=== PATIENT | male | born 1945 | race Caucasian/White ===

== ENCOUNTER → 2020-01-15 15:53 | Outpatient (REF) | payer OTHER, SELFPAY | LOC: ANHLAB 15:53 | PROVIDERS: PCP Internal Medicine; Visit Provider Nurse Practitioner | DX: L85.8 Other specified epidermal thickening (principal) | CPT/HCPCS: 88305 ==

== ENCOUNTER → 2021-04-16 11:48 | Outpatient (CLI) | payer OTHER, SELFPAY ==
--- NOTE | ~2021-04-16 | XR_ITS ---
EXAMINATION: XR shoulder RT min 2V DATE: 04/16/2021 12:14 INDICATION: Right shoulder pain. TECHNIQUE: 4 views of right shoulder were obtained. COMPARISON: None. FINDINGS: Bone alignment is normal. No fracture. There is mild osteoarthritis of glenohumeral joint a nd acromioclavicular joint. IMPRESSION: 1. Mild polyarticular osteoarthritis. Reviewed, dictated and finalized at location B. SIZER
--- NOTE | ~2021-04-16 | XR_ITS ---
EXAMINATION: XR shoulder LT min 2V DATE: 04/16/2021 12:14 INDICATION: Left shoulder pain TECHNIQUE: AP internally and externally rotated, AP oblique externally rotated and axillary views of the left shoulder were obtained. COMPARISON: None FINDINGS: Normal alignment. No fracture. Glenohumeral joint is normal. Mild acromioclavicular osteoarthritis. Small heterotopic ossicle in the posterolateral upper arm in the region of the distal deltoid. Soft t issues are otherwise unremarkable. Visualized portions of the left lung are clear. IMPRESSION: Mild acromioclavicular osteoarthritis. Reviewed, dictated and finalized at location A. 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
== END ==
PROVIDERS: PCP Internal Medicine; Visit Provider Internal Medicine
DX: M25.512 Pain in left shoulder (principal); M25.511 Pain in right shoulder; M19.012 Primary osteoarthritis, left shoulder; M19.011 Primary osteoarthritis, right shoulder
CPT/HCPCS: 73030

== ENCOUNTER → 2022-03-10 09:33 | Outpatient (CLI) | payer OTHER, SELFPAY ==
--- NOTE | ~2022-03-10 | CT_ITS ---
EXAMINATION: CT lung screening DATE: 03/10/2022 09:47 INDICATION: Smoking history. Personal history of tobacco dependence. TECHNIQUE: Computed tomography (CT) of the chest was performed without intravenous contrast. The dose -length product was 91.91 mGy-cm. Automated exposure control and iterative reconstruction technique w ere employed. Axial COMPARISON: CT dated 09/07/2016 FINDINGS: There is atherosclerosis of the aorta and coronary arteries. Heart size mildly enlarged. No significant pleural or pericardial effusion. There is emphysema. No pneumothorax. There is dependent atelectasis. There are 3 mm right upper lobe nodules, best seen on coronal image 54. No endobronchia l lesions. Mild thoracic spondylosis. No focal lytic or blastic lesions. IMPRESSION: 1. Lung-RADS category 2: Benign appearance or behavior. Continue annual screening with noncontrast lo w-dose chest CT in 12 months. Reviewed, dictated and finalized at location A. PITTER IMPRESSION: 1. Lung-RADS category 2: Benign appearance or behavior. Continue annual screeni ng with noncontrast low-dose chest CT in 12 months.
== END ==
PROVIDERS: PCP Family Medicine; Visit Provider Family Medicine
DX: Z12.2 Encounter for screening for malignant neoplasm of respiratory organs (principal); Z87.891 Personal history of nicotine dependence
CPT/HCPCS: 71271

== ENCOUNTER 2022-09-23 07:54 | Outpatient (CLI) | payer OTHER, SELFPAY ==
[2022-09-23 17:38] LABS: Basophils Percent Auto 0.8 % (0.2-1.2); Eosinophils Absolute Auto 0.2 K/mm3 (0-0.3); Hematocrit 38.1 % (42.0-52.0); Hemoglobin 13.2 g/dL (14.0-18.0); Immature Granulocyte Absolute 0.02 K/mm3 (0.00-0.031); Immature Granulocyte Percent A 0.4 % (0-0.5); Lymphocytes Absolute Auto 0.85 K/mm3 (0.9-3.2); Lymphocytes Percent Auto 17.9 % (18.3-44.2); Mean Corpuscular HGB Conc 34.6 g/dl (32-36); Mean Corpuscular Hemoglobin 33.1 pg (26-34); Mean Corpuscular Volume 95.5 fl (80-100); Mean Platelet Volume 11.9 fl (7.4-10.4); Monocytes Absolute Auto 0.6 K/mm3 (0.1-0.6); Monocytes Percent Auto 12.2 % (2.6-8.5); Neutrophils Absolute Auto 3.1 K/mm3 (1.3-6.7); Neutrophils Percent Auto 64.7 % (45.5-73.1); Platelet Count Result 156 k/mm3 (150-375); Red Blood Count 3.99 M/mm3 (4.6-6.20); Red Cell Distribution Width 13.6 % (11.5-14.5); White Blood Count 4.8 K/mm3 (4.5-10.0)
[2022-09-23 20:49] LABS: Alanine Aminotransferase 33 U/L (6-50); Albumin Level 4.3 g/dL (3.5-5.1); Alkaline Phosphatase 45 U/L (38-126); Anion Gap 9 mmol/L (8-16); Aspartate Amino Transferase 34 U/L (17-59); Bilirubin,Total 0.6 mg/dL (0.2-1.3); Blood Urea Nitrogen 20 mg/dL (9-20); Calcium 8.9 mg/dL (8.4-10.2); Carbon Dioxide 26 mmol/L (22-30); Chloride 99 mmol/L (98-107); Cholesterol 152 mg/dL (0-200); Estimated Glomerular Filt Rate > 60; Glucose 96 mg/dL (65-110); HDL Direct 37 mg/dL; Sodium 134 mmol/L (137-145); Triglycerides 88 mg/dL (<150)
[2022-09-23 22:03] LABS: LDL Cholesterol Direct 98 mg/dL
== END 2022-09-23 07:55 | disposition home or self-care (01) ==
LOC: ANHGOSHLAB 07:56
PROVIDERS: PCP Family Medicine; Visit Provider Family Medicine
DX: R53.83 Other fatigue (principal); E78.5 Hyperlipidemia, unspecified; I10 Essential (primary) hypertension
CPT/HCPCS: 36415; 80053; 80061; 85025

== ENCOUNTER 2022-10-28 07:24 | Outpatient (CLI) | payer OTHER, SELFPAY ==
--- NOTE | ~2022-10-28 | NM_ITS ---
EXAMINATION: NM siomara stress w perfusion DATE: 10/28/2022 11:25 INDICATION: Dyspnea TECHNIQUE: Rest images were obtained following intravenous administration of 10.5 mCi Tc99m tetrofosm in (Myoview). The patient was infused intravenously with Lexiscan (Regadenoson). Then, 32.5 mCi Tc99m tetrofosmin (Myoview) was administered intravenously, and stress images were obtained in both the [place] and prone position. Data was reconstructed into short axis and horizontal and vertical long axis SPECT images. Gated SPECT images were also obtained. COMPARISON: None. FINDINGS: Mild to moderate severity perfusion defect in the left anterior descending coronary artery vascular distribution involving the apex, anteroapical, apical septal and mid anteroseptal segments. This primarily nonreversible infarct with partial reversibility consistent with ischemia at the anter oapical segment. There is an additional moderate severity perfusion defect involving portions of the right coronary artery and circumflex coronary artery vascular distributions portions of which are non reversible and portion which are partially reversible consistent with combination of infarct and isch emia. This involves the apical, mid and basilar segments of the inferior wall, the apical lateral seg ment and the mid and basilar inferolateral segments. The majority of the reversible ischemia is prese nt in the circumflex and right coronary artery vascular distributions. Borderline left ventricular en largement with calculated end-diastolic volume of 186 mL. Mild global hypokinesis with more focal dec reased wall thickening and wall motion along the inferolateral wall. Moderately decreased left ventri cular ejection fraction which measures 35%. IMPRESSION: 1. Large region of mild to moderate decreased perfusion involving portions of all 3 coronary artery v ascular distributions, portions of which are partially reversible consistent with ischemia superimpos ed over infarct. 2. Borderline left ventricular enlargement with carcinoid end-diastolic volume of 186 mm and moderate ly decreased left ventricular ejection fraction measuring 35%. Reviewed, dictated and finalized at location A. IMPRESSION: 1. Large region of mild to moderate decreased perfusion involving portions of a ll 3 coronary artery vascular distributions, portions of which are partially re versible consistent with ischemia superimposed over infarct. 2. Borderline left ventricular enlargement with carcinoid end-diastolic volume of 186 mm and moderately decreased left ventricular ejection fraction measuring 35%.
--- NOTE | 2022-10-28 07:34 | ECG_ITS ---
Measurements Intervals [place] Rate: 61 P: 41 ID: [id number] QRS: -39 QRSD: 176 T: 144 QT: 478 QTc: 482 Interpretive Statements SINUS RHYTHM WITH SINUS ARRHYTHMIA LEFT AXIS DEVIATION LEFT BUNDLE BRANCH BLOCK ABNORMAL ECG NO PREVIOUS ECG AVAILABLE FOR COMPARISON Electronically Signed On 10-28-2022 8:56:10 CDT by Miguel Angel Joe D.O.
--- NOTE | 2022-10-28 07:34 | ECHO_ITS ---
Patient Info Name: Henry Bearden Age: 77 years : 1945 Gender: Male Ht: 69 in Wt: 190 lbs BSA: 2.07 m2 HR: 72 bpm BP: 136 / 82 mmHg Heart Rhythm: Sinus Rhythm Technical Quality: Fair Exam Date: 10/28/2022 7:41 AM Exam Location: [facility] Pulmonary Patient Status: Outpatient Admit Date: 10/28/2022 Staff Ordering Physician: Darryl Moran DO Insurance Manager: Nevin Flores RDCS Attending Provider: Darryl Moran DO Referring Physician: Luisa ANAND; Exam Type: CA echo doppler color flow Study Info Indications R06.09 - Other forms of dyspnea Complete two-dimensional, color flow and Doppler transthoracic echocardiogram is performed. Strain analysis performed. Summary 1. Complete two-dimensional, color flow and Doppler transthoracic echocardiogram is performed. 2. Left ventricular chamber dimension is mildly enlarged. 3. Left ventricular systolic function is moderately reduced, estimated at 35-40%. 4. Left ventricular septal wall motion is abnormal with septal motion related to bundle branch block. 5. The left ventricular diastolic function is grade I diastolic dysfunction. 6. E/e' 20 is elevated. 7. Global longitudinal strain is abnormal at -9.9%. 8. Left atrial chamber dimension is mildly enlarged. 9. The mitral valve has mildly calcified annulus. 10. There is mild to moderate mitral valve regurgitation. 11. There is trace tricuspid valve regurgitation. 12. No pulmonary hypertension, estimated pulmonary arterial systolic pressure is 21 mmHg. Left Ventricle E/e' 20 is elevated. Global longitudinal strain is abnormal at -9.9%. Left ventricular chamber dimension is mildly enlarged. Left ventricular systolic function is moderately reduced, estimated at 35-40%. Left ventricular septal wall motion is abnormal with septal motion related to bundle branch block. The left ventricular diastolic function is grade I diastolic dysfunction. Right Ventricle Right ventricular systolic function is normal and with normal TAPSE 2.0 cm. Right ventricular chamber dimension is normal. Left Atria Left atrial chamber dimension is mildly enlarged. Right Atria Right atrial chamber dimension is normal. Aortic Valve The aortic valve is trileaflet. There is no aortic valve stenosis. There is no aortic valve regurgitation. Pulmonic Valve There is no pulmonic regurgitation. Mitral Valve The mitral valve has mildly calcified annulus. There is no mitral valve stenosis. There is mild to moderate mitral valve regurgitation. Tricuspid Valve There is trace tricuspid valve regurgitation. No pulmonary hypertension, estimated pulmonary arterial systolic pressure is 21 mmHg. Pericardium/Pleural There is no pericardial effusion. Inferior Vena Cava Normal inferior vena cava with >50% collapse upon inspiration consistent with normal right atrial pressure, 5 mmHg. Aorta The aortic root size at the sinus of Valsalva is normal. Left Ventricular Outflow Tract Name Value Normal LVOT 2D LVOT Diameter 2.0 cm LVOT Doppler LVOT Peak Gradient 3 mmHg LVOT Mean Gradient 1 mmHg LVOT VTI 16 cm LVOT VTI/AV VTI Ratio
--- NOTE | 2022-10-28 07:35 | EST_ITS ---
Patient Info Name: Henry Bearden Age: 77 years : 1945 Gender: Male Ht: 69 in Wt: 190 lbs BSA: 2.07 m2 HR: 59 bpm BP: 152 / 75 mmHg Heart Rhythm: Left Bundle Branch Block Exam Date: 10/28/2022 10:09 AM Exam Location: [facility] Stress Patient Status: Outpatient Admit Date: 10/28/2022 Staff Ordering Physician: Darryl Moran DO Attending Provider: Darryl Moran DO Exercise Technologist: Shania Felton CT Exercise Physician: Miguel Angel Joe DO Exam Type: CA stress siomara w NM Study Info Indications R06.09 - Other forms of dyspnea A regadenoson stress test was performed. Summary 1. 1. Inconclusive lexiscan stress test for ischemic ST changes by ECG criteria due to baseline LBBB. 2. 2. Baseline hypertension. 3. 3. Nuclear scan to follow and will be reported separately. Please correlate with it. 4. 4. Patient informed of the above results. Protocol: Lexiscan Stress ECG Details Stage: REST Duration (min): 9 min : 57 sec HR (bpm): 72 SBP (mmHg): 152 DBP (mmHg): 75 Stage: REST Duration (min): 12 min : 47 sec HR (bpm): 64 SBP (mmHg): 152 DBP (mmHg): 75 Stage: STAGE 1 Duration (min): 1 min : 0 sec HR (bpm): 73 SBP (mmHg): 144 DBP (mmHg): 81 Stage: RECOVERY Duration (min): 1 min : 0 sec HR (bpm): 87 SBP (mmHg): 144 DBP (mmHg): 81 Stage: RECOVERY Duration (min): 2 min : 0 sec HR (bpm): 87 SBP (mmHg): 144 DBP (mmHg): 81 Stage: RECOVERY Duration (min): 2 min : 55 sec HR (bpm): 82 SBP (mmHg): 147 DBP (mmHg): 84 Rest HR: 64 bpm Peak HR: 89 bpm Rest Sys BP: 152 mmHg Peak Sys BP: 147 mmHg Max Pred HR: 145 bpm % Max Pred HR: 61 % Target HR: 123 bpm Max RPP: 13,083 bpm*mmHg Termination Reason: Completed protocol Cardiac Symptoms: Shortness of breath Total Time: 1 min : 0 sec Rest Quach BP: 75 mmHg Peak Quach BP: 84 mmHg Total Dose: 0.4 mg Resting ECG Sinus rhythm, LBBB. Stress ECG No ST changes. Arrhythmias None. Report Signatures
== END 2022-10-28 07:25 | disposition home or self-care (01) ==
PROVIDERS: PCP Family Medicine; Visit Provider Family Medicine
DX: R53.83 Other fatigue (principal); R06.09 Other forms of dyspnea; I44.7 Left bundle-branch block, unspecified; I10 Essential (primary) hypertension; R94.31 Abnormal electrocardiogram [ECG] [EKG]; I34.0 Nonrheumatic mitral (valve) insufficiency; R93.1 Abnormal findings on diagnostic imaging of heart and coronary circulation
CPT/HCPCS: 78452; 93005; 93017; 93306; A9502; J2785

== ENCOUNTER 2023-01-15 04:05 | Day surgery (SDC) | payer OTHER, SELFPAY ==
[2023-01-14 15:18] VITALS: BMI 28.5
[2023-01-15] VITALS (17 sets, daily range): BP systolic 127–150; BP diastolic 50–94; PULSE 61–75; RESP 12–20; TEMP 35.9; O2SAT 93–99; BMI 28.0
[2023-01-15 07:43] LABS: Basophils Percent Auto 0.8 % (0.2-1.2); Eosinophils Absolute Auto 0.2 K/mm3 (0-0.3); Eosinophils Percent Auto 3.4 % (0-4.4); Hematocrit 39.5 % (42.0-52.0); Hemoglobin 14.1 g/dL (14.0-18.0); Immature Granulocyte Absolute 0.02 K/mm3 (0.00-0.031); Immature Granulocyte Percent A 0.4 % (0-0.5); Lymphocytes Absolute Auto 1.08 K/mm3 (0.9-3.2); Lymphocytes Percent Auto 20.5 % (18.3-44.2); Mean Corpuscular HGB Conc 35.7 g/dl (32-36); Mean Corpuscular Hemoglobin 33.5 pg (26-34); Mean Corpuscular Volume 93.8 fl (80-100); Mean Platelet Volume 10.1 fl (7.4-10.4); Monocytes Absolute Auto 0.6 K/mm3 (0.1-0.6); Monocytes Percent Auto 10.6 % (2.6-8.5); Neutrophils Absolute Auto 3.4 K/mm3 (1.3-6.7); Neutrophils Percent Auto 64.3 % (45.5-73.1); Platelet Count Result 208 k/mm3 (150-375); Red Blood Count 4.21 M/mm3 (4.6-6.20); Red Cell Distribution Width 13.1 % (11.5-14.5); White Blood Count 5.3 K/mm3 (4.5-10.0)
[2023-01-15 07:51] LABS: Anion Gap 10 mmol/L (8-16); Blood Urea Nitrogen 14 mg/dL (9-20); Calcium 9.1 mg/dL (8.4-10.2); Carbon Dioxide 22 mmol/L (22-30); Chloride 101 mmol/L (98-107); Estimated CRCL calculation 56 ml/min; Estimated Glomerular Filt Rate > 60; Glucose 115 mg/dL (65-110); Potassium 3.8 mmol/L (3.4-5.0); Sodium 133 mmol/L (137-145)
[2023-01-15 08:03] LABS: Prothrombin Time 13.7 Seconds (11.1-14.7)
--- NOTE | 2023-01-15 10:28 | WPDMODSED ---
Moderate Sedation Note-Pt Data Patient Data Diagnosis: left ventricular systolic dysfunction left bundle branch block hypertension Present Complaint: generalized fatigue/lack of energy Procedure to be performed/Plan: left heart catheterization Allergies Allergy/AdvReac Type Severity Reaction Status Date / Time Penicillins Allergy Mild rash Verified 01/14/23 15:16 Home Medications Medication Instructions Recorded Confirmed Type hydrochlorothiazide 12.5 mg tablet 12.5 mg PO DAILY #90 tabs 08/21/21 01/14/23 Rx lisinopril 10 mg tablet 10 mg PO DAILY #90 tabs 01/26/22 01/15/23 Rx lovastatin 40 mg tablet 40 mg PO QPM #90 tabs 09/29/22 01/15/23 Rx Current Medications: Active Medications Sodium Chloride (Normal Saline Iv) 500 mls @ 100 mls/hr IV CONT .Q5H GORGE Sedation/Anesthesia: No previous sedation/anesthesia problems (including family history). [facility] Family History Family History Sibling Family history of migraine headaches Family history of type 2 diabetes mellitus Mother Family history of malignant neoplasm Patient's mother is Father Patient's father is , Onset Age: 73 Social History Social History Smoking packs per day: 2 Smoking cigarettes per day: 40.0 Years smoked: 50 Smoking pack-years: 100.00 Smoking status: Former smoker Tobacco type: cigarettes Second hand tobacco smoke exposure: No Smoking end date: 01/13/17 Alcohol intake: current Drinks per week: 12 Alcohol use details: beer Substance use: never Substance use type: does not use Last use: 2016 Lack of Transportation: No Lack of Food: Never True Current Housing: I Have Housing Concerned About Future Housing: No Difficulty Paying Gas/Electric Bills: No Difficulty Paying for Meds: No Currently Unemployed: No Education: High School Diploma/GED Difficulty w/ Childcare or Family Care: No Living arrangements: alone Spiritual care concerns: No Mod Sed Physical Exam Physical Exam Pre Procedural Exam: Normal: Appearance, Neck, Throat, Airway, Lungs, Heart Size, Heart Rate, Heart Rhythm, Neuro Exam and Extremities Hours since solid foods: 12 Hours since liquid intake: 12 Mallampati Classification: class II Internal Medicine - PN: Obj Da Vital Signs Vital Signs: Vital Signs - 24 hr 01/15/23 07:34 Temperature 35.9 C L Pulse Rate 67 Respiratory Rate 14 Blood Pressure 146/93 H Pulse Oximetry 96 Oxygen Delivery Room Air Meds/Results Medications: Active Medications Generic Name Dose Route Start Last Admin Trade Name Patricioq PRN Reason Stop Dose Admin Sodium Chloride 500 mls @ 100 mls/hr 01/15/23 07:30 Normal Saline Iv IV CONT .Q5H GORGE Labs 01/15/23 07:37 01/15/23 07:37 Labs: Laboratory Results - last 24 hr 01/15/23 07:37 WBC 5.3 RBC 4.21 L Hgb 14.1 Hct 39.5 L MCV 93.8 MCH 33.5 MCHC 35.7 RDW 13.1 Plt Count 208 MPV 10.1 Immature Gran % (Auto) 0.4 Neut % (Auto) 64.3 Lymph % (Auto) 20.5 Ida % (Auto) 10.6 H Eos % (Auto) 3.4 Baso % (Auto) 0.8 Lymph # (Auto) 1.08 Ida # (Auto) 0.6 Eos # (Auto) 0.2 Baso # (Auto) 0.0 Abs Immat Gran (auto) 0.02 Absolute Neuts (auto) 3.4 Absolute Nucleated RBC 0.0 Nucleated RBC % 0.0 PT 13.7 INR 1.0 Sodium 133 L Potassium 3.8 Chloride 101 Carbon Dioxide 22 Anion Gap 10 BUN 14 D Creatinine 1.00 Estim Creat Clear Calc 56 Estimated GFR > 60 Glucose 115 H Calcium 9.1 ASA Classification/Sedation ASA Classification/Sedation ASA Class: II Emergent: No Risks: Risks, benefits and alternatives explained and patient/family accepted plan for sedation. Patient re-evaluated immediately prior to sedation.
--- NOTE | 2023-01-15 11:03 | WPDCARDPROC ---
Cardiac Cath Procedure Note Date of procedure:: 01/15/23 Performing physician:: Maynor Mcgregor MD Indication:: left bundle branch block left ventricular systolic dysfunction Brief clinical history:: this is a 77-year-old man found to have left bundle branch block and LV systolic dysfunction a recent nuclear stress testing that was done to evaluate symptoms of exertional fatigue and lack of energy. He is not having any chest pain per se. Because of these findings angiography has been recommended Procedure Procedure performed:: coronary angiogram left ventriculogram Sedation/Medication given:: fentanyl 50 mg Versed 2 mg case start 1031 case end time 11:01 a.m. sedation provided by Valencia Connor RN, trained observer Access site:: right femoral artery Estimated blood loss:: 25 cc Procedure note:: patient was brought to the cardiac catheterization lab in post absorptive state where the right femoral triangle was prepared and draped in the usual fashion. Anesthesia was provided with 1% lidocaine infiltrated locally. Using the modified Seldinger technique the right femoral artery was punctured and a 5 [place] vascular sheath was placed. After this left heart catheterization was carried out. I used a 5 [place] angled pigtail catheter to measure left-sided and inject LV g in the 30 degree [place] projection. Following this I used a standard 5 [place] FL4 catheter to engage inject the left coronary artery. The standard JR4 catheter would not successfully engage the right coronary artery. I injected this artery using a 5 [place] AL1 catheter. Cineangiograms were then reviewed and the case was terminated. An angiogram was performed to the femoral artery through the sheath after which I elected to have the sheath removed with direct manual compression. He tolerated the procedure well there were no apparent complications. 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 Findings:: Hemodynamics: Central aortic pressure was 135 over 64 left ventricle 135/6 end-diastolic 15 there was no gradient on pullback across the aortic valve. Left ventricle: The LV is moderately dilated there is moderate global systolic dysfunction identified with an ejection fraction of 30-35% by visual estimation. The left coronary artery is significantly calcified fluoroscopically prior to any injection. The right coronary is mild to moderately calcified. The left main coronary artery is nicely patent the left anterior descending is a moderate caliber artery which is heavily calcified proximally. Proximally there is mild stenosis in the LAD after the large diagonal branch arises the LAD itself has a discrete 80% stenosis. This is immediately after the origin of the major diagonal as described above. Distally the LAD has mild atherosclerosis there was good flow down to the apex. The circumflex is a moderate caliber artery which appears to be 100% occluded after the 1st OM branch takes its origin. Proximal circ in the 1st OM are free of significant lesions. The right coronary artery is large in caliber and dominant to the posterior circulation. The ostium of the right coronary artery has 95% stenosis. The 1st portion of the right coronary has 90% stenosis the 2nd portion has 50-60% stenosis. The RPDA and RPL branches are good size and are free of significant lesions. Conclusion:: 1. Right coronary dominant circulation with severe three-vessel coronary artery disease. 2. 80% stenosis in the LAD immediately after they major diagonal arises. Lad is moderate to severely calcified vessel 3. total occlusion of the circumflex after OM1 4. 95% ostial right coronary stenosis with high-grade stenosis in the 1st portion. Large dominant RCA with good distal targets 5. left ventricular enlargement with moderate global systolic dysfunction ejection fraction 30-35% Maynor Mcgregor MD FACC
== END 2023-01-15 16:58 | disposition home or self-care (01) ==
PROVIDERS: PCP Family Medicine; Visit Provider Specialist
PROC: 4A023N7 Measurement of Cardiac Sampling and Pressure, Left Heart, Percutaneous Approach (ICD-10-PCS; CPT 93452; principal; 2023-01-15 09:00)
DX: I25.10 Atherosclerotic heart disease of native coronary artery without angina pectoris (principal); R94.39 Abnormal result of other cardiovascular function study; I44.7 Left bundle-branch block, unspecified; I10 Essential (primary) hypertension; E78.5 Hyperlipidemia, unspecified; Z87.891 Personal history of nicotine dependence
CPT/HCPCS: 36415; 80048; 85025; 85610; 93458; C1887; C1894; J1644; J2250; J3010; J7040

== ENCOUNTER 2023-02-01 15:28 | Outpatient (CLI) | payer OTHER, SELFPAY ==
[2023-02-01 16:30] LABS: Basophils Percent Auto 0.6 % (0.2-1.2); Eosinophils Absolute Auto 0.1 K/mm3 (0-0.3); Eosinophils Percent Auto 2.7 % (0-4.4); Hematocrit 40.6 % (42.0-52.0); Hemoglobin 13.8 g/dL (14.0-18.0); Immature Granulocyte Absolute 0.01 K/mm3 (0.00-0.031); Immature Granulocyte Percent A 0.2 % (0-0.5); Lymphocytes Percent Auto 15.6 % (18.3-44.2); Mean Corpuscular Hemoglobin 32.6 pg (26-34); Mean Platelet Volume 11.1 fl (7.4-10.4); Monocytes Absolute Auto 0.5 K/mm3 (0.1-0.6); Monocytes Percent Auto 9.9 % (2.6-8.5); Neutrophils Absolute Auto 3.6 K/mm3 (1.3-6.7); Platelet Count Result 215 k/mm3 (150-375); Red Blood Count 4.23 M/mm3 (4.6-6.20); Red Cell Distribution Width 13.3 % (11.5-14.5); White Blood Count 5.1 K/mm3 (4.5-10.0)
== END 2023-02-01 15:29 | disposition home or self-care (01) ==
PROVIDERS: PCP Family Medicine
DX: I44.7 Left bundle-branch block, unspecified (principal)
CPT/HCPCS: 36415; 85025

== ENCOUNTER 2023-11-08 11:11 | Outpatient (CLI) | payer OTHER, SELFPAY ==
[2023-11-08 18:54] LABS: Alanine Aminotransferase 20 U/L (6-50); Albumin Level 4.3 g/dL (3.5-5.1); Alkaline Phosphatase 50 U/L (38-126); Anion Gap 11 mmol/L (4-12); Aspartate Amino Transferase 82 U/L (17-59); Bilirubin,Total 0.9 mg/dL (0.2-1.3); Blood Urea Nitrogen 17 mg/dL (9-20); Calcium 8.9 mg/dL (8.4-10.2); Carbon Dioxide 23 mmol/L (22-30); Chloride 99 mmol/L (98-107); Cholesterol 145 mg/dL (0-200); Estimated Glomerular Filt Rate > 60; Glucose 97 mg/dL (65-110); HDL Direct 44 mg/dL; Potassium 4.3 mmol/L (3.4-5.0); Sodium 133 mmol/L (137-145); Triglycerides 55 mg/dL (<150)
[2023-11-08 19:04] LABS: LDL Cholesterol Direct 79 mg/dL
== END 2023-11-08 11:12 | disposition home or self-care (01) ==
LOC: ANHGOSHLAB 11:12
PROVIDERS: PCP Family Medicine; Visit Provider Family Medicine
DX: Z13.220 Encounter for screening for lipoid disorders (principal); Z13.228 Encounter for screening for other metabolic disorders; E78.5 Hyperlipidemia, unspecified
CPT/HCPCS: 36415; 80053; 80061

== ENCOUNTER 2023-11-09 09:11 | Outpatient (CLI) | payer OTHER, SELFPAY ==
--- NOTE | ~2023-11-09 | US_ITS ---
EXAMINATION: US soft tissue abdomen DATE: 11/09/2023 09:23 INDICATION: Left lower abdominal nodule. TECHNIQUE: Multiple grayscale and Doppler ultrasound images of the abdomen were obtained. COMPARISON: None FINDINGS: In the left lower flank, there is a 2.6 x 0.9 x 2.1 cm hyperechoic subcutaneous mass. IMPRESSION: 1. 2.6 cm hyperechoic subcutaneous mass in left lower flank, most likely inflammation given the skin discoloration with the appearance of a bruise. Reviewed, dictated and finalized at location A. IMPRESSION: 1. 2.6 cm hyperechoic subcutaneous mass in left lower flank, most likely inflam mation given the skin discoloration with the appearance of a bruise.
== END 2023-11-09 09:12 ==
LOC: GOSHIMG 09:12
PROVIDERS: PCP Family Medicine; Visit Provider Family Medicine
DX: R19.04 Left lower quadrant abdominal swelling, mass and lump (principal)
CPT/HCPCS: 76705

== ENCOUNTER 2023-12-10 15:20 | Inpatient (IN) | payer OTHER, SELFPAY ==
--- NOTE | ~2023-12-10 | XR_ITS ---
EXAMINATION: XR chest 2V DATE: 12/10/2023 17:16 INDICATION: Weakness. TECHNIQUE: Frontal and lateral views of the chest were obtained. COMPARISON: None. FINDINGS: There is no pneumonia, pleural effusion, or pneumothorax. The heart size is normal. There i s a left chest wall pacer with leads in the right atrium and right ventricle. IMPRESSION: 1. No acute cardiopulmonary disease. Reviewed, dictated and finalized at location A.
[2023-12-10 16:01] VITALS: BP 97/80; PULSE 102; RESP 16; TEMP 36.7; O2SAT 95
--- NOTE | 2023-12-10 16:02 | ECG_ITS ---
Test Date: 2023-12-10 16:11:24 Measurements Intervals [place] Rate: 92 P: 64 CT: 168 QRS: -81 QRSD: 200 T: 89 QT: 418 QTc: 519 Interpretive Statements ELECTRONIC ATRIAL PACEMAKER WITH INHIBITION ELECTRONIC VENTRICULAR PACEMAKER BASELINE ARTIFACT- I, AVR NO FURTHER INTERPRETATION IS POSSIBLE ATYPICAL ECG No previous ECG available for comparison Electronically Signed On 12-10-2023 16:15:59 CDT by Miguel Angel Joe D.O.
--- NOTE | 2023-12-10 16:03 | ED_ITS ---
HPI - Weakness General Chief complaint: Weakness <Jennifer Majano PA-C - Last Filed: 12/11/23 14:43> Stated complaint: Generalized Weakness. Pt not eaten in 4 days <Jennifer Majano PA-C - Last Filed: 12/11/23 14:43> Time Seen by Provider: 12/10/23 16:03 <Jennifer Majano PA-C - Last Filed: 12/11/23 14:43> Focused HPI: This is a 78-year-old male that presents to the emergency department for generalized weakness. Reports this has been worsening over the last several months. His son brought him in today because he was concerned he has not eaten or drank much the last couple of days. Patient has no focal pain. Reports he just feels lousy. GENERAL: Well-appearing, well-nourished, and in no acute distress. HEAD: Normocephalic, atraumatic. CHEST: Clear to auscultation. ?No respiratory distress. HEART: Regular rate and rhythm.? NEURO: ?Alert and oriented x3. Patient screened in triage and initial orders placed.? ?Additional care and disposition to be based upon?diagnostic testing and treatment. <Jennifer Majano PA-C - Last Filed: 12/11/23 14:43> History of Present Illness HPI Narrative: I agree with the note and assessment performed by Jennifer Majano PA-C. <Patricia Hunter APRN - Last Filed: 12/11/23 03:15> MD Complaint: generalized weakness <Patricia Hunter APRN - Last Filed: 12/11/23 03:15> Related Data Home medications: Home Medications Medication Instructions Recorded Confirmed aspirin 81 mg tablet,delayed 81 mg PO DAILY 05/11/23 12/11/23 release (Adult Aspirin Regimen) ticagrelor 90 mg tablet 90 mg PO Q12H 05/11/23 12/11/23 carvedilol 3.125 mg tablet 3.125 mg PO BID 12/11/23 12/11/23 hydralazine 25 mg tablet 25 mg PO DAILY 12/11/23 12/11/23 sildenafil (pulm.hypertension) 20 20 mg PO TID PRN Sexual Activity 12/11/23 12/11/23 mg tablet <Jennifer Majano PA-C - Last Filed: 12/11/23 14:43> Allergies/Adverse reactions: Allergies Allergy/AdvReac Type Severity Reaction Status Date / Time Penicillins Allergy Mild rash Verified 12/11/23 04:28 <Jennifer Majano PA-C - Last Filed: 12/11/23 14:43> Review of Systems Review of Systems: All systems reviewed & are unremarkable except as noted in HPI and below <Patricia Hunter APRN - Last Filed: 12/11/23 03:15> [facility] Past Medical History Medical History: Medical History (Updated 12/11/23 @ 14:42 by Jennifer Majano PA-C) Benign essential hypertension Chronic heart failure with reduced ejection fraction (HFrEF, <= 40%) Coronary artery disease Hyperlipidemia Pacemaker <Jennifer Majano PA-C - Last Filed: 12/11/23 14:43> Family History Family History: Family History Sibling Family history of migraine headaches Family history of type 2 diabetes mellitus Mother Family history of malignant neoplasm Patient's mother is Father Patient's father is , Onset Age: 73 <Jennifer Majano PA-C - Last Filed: 12/11/23 14:43> Social History Social History: Social History Smoking packs per day: 2 Smoking cigarettes per day: 40.0 Years smoked: 50 Smoking pack-years: 100.00 Smoking status: Former smoker Tobacco type: cigarettes Second hand tobacco smoke exposure: No Smoking end date: 01/13/17 Alcohol intake: current Drinks per week: 12 Alcohol use details: beer Substance use: current Substance use type: does not use Last use: 2017 Do You Feel Safe in your Home?: Yes Lack of Transportation: No Lack of Food: Never True Current Housing: I Have Housing Concerned About Future Housing: No Difficulty Paying Gas/Electric Bills: No Difficulty Paying for Meds: No Currently Unemployed: No Education: Decline to Answer Difficulty w/ Childcare or Family Care: No Living arrangements: alone Spiritual care concerns: No <Jennifer Majano PA-C - Last Filed: 12/11/23 14:43> Exam Narrative: GENERAL: Ill-appearing but well-nourished, non-toxic, in no acute distress. HEAD: Normocephalic, atraumatic. NECK: Supple. No adenopathy, no masses. RESPIRATORY: Airway patent, respirations nonlabored. Clear to auscultation bilaterally, no rales, rhonchi, wheezing. CARDIOVASCULAR: Paced heart rate, rhythm without murmurs, rubs, or gallops. Mild bilateral lower extremity edema. Peripheral pulses 2+ and equal bilaterally. ABDOMINAL: Soft, nontender, nondistended, no hepatosplenomegaly. Normoactive BS. MUSCULOSKELETAL: Moves all extremities. Strength/ROM intact without gross deformities. SKIN: Warm, dry, normal color. No rashes. NEURO: A&O X3. Speech clear. Cranial nerves II-XII grossly intact. No ataxic movements. <Patricia Hunter APRN - Last Filed: 12/11/23 03:15> Course LINE UP MACHINE OPERATOR/PA Physician Supervision For this patient encounter, I reviewed the LINE UP MACHINE OPERATOR or PA documentation, treatment plan, and medical decision making and/or I had [id number] time with this patient. I performed all aspects of the MDM as documented. <Cleo Weston MD - Last Filed: 12/11/23 04:57> Vital Signs Vital signs: Vital Signs Temperature 98.1 F 12/10/23 16:01 Pulse Rate 102 H 12/10/23 16:01 Respiratory Rate 16 12/10/23 16:01 Blood Pressure 97/80 L 12/10/23 16:01 Pulse Oximetry 95 12/10/23 16:01 Oxygen Delivery Room Air 12/10/23 16:01 Temperature 97.6 F 12/11/23 11:43 Pulse Rate 80 12/11/23 14:00 Respiratory Rate 16 12/11/23 12:00 Blood Pressure 121/65 12/11/23 11:43 Pulse Oximetry 98 12/11/23 12:00 Oxygen Delivery Room Air 12/11/23 12:00 <Jennifer Majano PA-C - Last Filed: 12/11/23 14:43> Vital Signs Temperature 98.1 F 12/10/23 16:01 Pulse Rate 102 H 12/10/23 16:01 Respiratory Rate 16 12/10/23 16:01 Blood Pressure 97/80 L 12/10/23 16:01 Pulse Oximetry 95 12/10/23 16:01 Oxygen Delivery Room Air 12/10/23 16:01 Temperature 97.6 F 12/11/23 11:43 Pulse Rate 80 12/11/23 14:00 Respiratory Rate 16 12/11/23 12:00 Blood Pressure 121/65 12/11/23 11:43 Pulse Oximetry 98 12/11/23 12:00 Oxygen Delivery Room Air 12/11/23 12:00 <Patricia Hunter, CUSTOMER PROGRAM SPECIALIST - Last Filed: 12/11/23 03:15> Vital Signs Temperature 98.1 F 12/10/23 16:01 Pulse Rate 102 H 12/10/23 16:01 Respiratory Rate 16 12/10/23 16:01 Blood Pressure 97/80 L 12/10/23 16:01 Pulse Oximetry 95 12/10/23 16:01 Oxygen Delivery Room Air 12/10/23 16:01 Temperature 97.6 F 12/11/23 11:43 Pulse Rate 80 12/11/23 14:00 Respiratory Rate 16 12/11/23 12:00 Blood Pressure 121/65 12/11/23 11:43 Pulse Oximetry 98 12/11/23 12:00 Oxygen Delivery Room Air 12/11/23 12:00 <Cleo Weston MD - Last Filed: 12/11/23 04:57> MDM - Weakness MDM Narrative Medical decision making narrative: This is a 78-year-old male that presents to the emergency department for generalized weakness. Reports this has been worsening over the last several months. His son brought him in today because he was concerned he has not eaten or drank much the last couple of days. Patient has no focal pain. Reports he just feels lousy. Upon examination, pt appears to be lethargic but is alert & oriented x 4. He reports no other symptoms and denies pain. Pt's son reports pt was recently admitted to [facility] over night, but he is unsure as to why or what he was diagnosed with at that time. Pt reports he has not been sleeping well lately. Pt's initial troponin was elevated at 0.048. His PTT and INR were both elevated, but pt is on Brilinta at home. His CBC indicated a normal WBC, but pt does have bands so blood cultures were drawn. Pt's blood work also indicated pt was dehydrated so pt was given 1L of IV 0.9NS over a total of four hours. He tolerat ed the IV fluid well. Pt and his son in agreement with plan for admittance to hospital. Will contact hospitalist. Hospitalist in agreement with plan for pt to be admitted to the hospital. Will put in consult for cardiology, but waiting to consult until second troponin results. [employer] called back and does not have concerns that pt is having an NSTEMI. Will proceed with admission to hospital. Pt's urine sample came back with results showing that patient also has a UTI. Will prescribe antibiotics. <Patricia Hunter APRN - Last Filed: 12/11/23 03:15> Differential Diagnosis Differential diagnosis: Likely sepsis, dehydration and other (NSTEMI) <Patricia Hunter APRN - Last Filed: 12/11/23 03:15> Medical Records Attestation: I reviewed the patient's medical records. <Cleo Weston MD - Last Filed: 12/11/23 04:57> Lab Data Attestation: I reviewed the patient's lab results. <Patricia Hunter APRN - Last Filed: 12/11/23 03:15> Result diagrams: 12/10/23 16:40 12/11/23 01:46 <Jennifer Majano PA-C - Last Filed: 12/11/23 14:43> Labs: Lab Results 12/10/23 12/10/23 12/11/23 Range/Units 16:40 22:08 01:46 WBC 7.6 (4.5-10.0) K/mm3 RBC 3.97 L (4.6-6.20) M/mm3 Hgb 13.1 L (14.0-18.0) g/dL Hct 35.8 L (42.0-52.0) % MCV 90.2 (80-100) fl MCH 33.0 (26-34) pg MCHC 36.6 H (32-36) g/dl RDW 13.0 (11.5-14.5) % Plt Count 175 (150-375) k/mm3 MPV 10.4 (7.4-10.4) fl Immature Gran % (Auto) Not Reportable Neut % (Auto) Not Reportable Lymph % (Auto) Not Reportable Mclennan % (Auto) Not Reportable Eos % (Auto) Not Reportable Baso % (Auto) Not Reportable Lymph # (Auto) Not Reportable Mclennan # (Auto) Not Reportable Eos # (Auto) Not Reportable Baso # (Auto) Not Reportable Abs Immat Gran (auto) Not Reportable Absolute Neuts (auto) Not Reportable Absolute Nucleated RBC Not Reportable Total Counted 100 Neutrophils % (Manual) 86 H (46-73) % Band Neutrophils % 8 H (0-6) % Lymphocytes % (Manual) 2.0 L (18-44) % Monocytes % (Manual) 4 (3-9) % Nucleated RBC % Not Reportable Abs Neuts (Manual) 7.14 H (1.3-6.7) K/mm3 Abs Lymphs (Manual) 0.15 L (1.1-4.5) K/mm3 Abs Monocytes (Manual) 0.30 (0.1-0.90) K/mm3 Platelet Estimate Adequate (Adequate) Schistocytes None seen PT 15.3 H (11.1-14.7) Seconds INR 1.2 APTT 40.2 H (22.3-36.8) Seconds Sodium 127 L 126 L (137-145) mmol/L Potassium 4.4 3.6 (3.4-5.0) mmol/L Chloride 92 L 95 L (98-107) mmol/L Carbon Dioxide 23 20 L (22-30) mmol/L Anion Gap 12 11 (4-12) mmol/L BUN 41 H D 47 H (9-20) mg/dL Creatinine 1.20 1.30 (0.7-1.3) mg/dL Estim Creat Clear Calc 47 43 ml/min Estimated GFR 59 54 L (59 - ) Glucose 146 H 110 (65-110) mg/dL Calcium 8.9 8.2 L (8.4-10.2) mg/dL Magnesium 2.1 (1.6-2.3) mg/dL Total Bilirubin 2.0 H (0.2-1.3) mg/dL AST 113 H (17-59) U/L ALT 73 H (6-50) U/L Alkaline Phosphatase 87 (38-126) U/L Troponin I 0.048 H* 0.038 H* (0.000-0.034) ng/mL NT-Pro-B Natriuret Pep 77673 H (19.9-100) pg/mL Total Protein 9.0 H (6.3-8.2) g/dL Albumin 4.4 (3.5-5.1) g/dL Lipase 92 113 (23-300) U/L Urine Color (Yellow) Urine Appearance (Clear) Urine pH (5.0-9.0) Ur Specific [place] (1.001-1.035) Urine Protein (Negative) mg/dL Urine Glucose (UA) (Negative) mg/dL Urine Ketones (Negative) mg/dL Ur Blood (Man) (Negative) Urine Nitrate (Negative) Urine Bilirubin (Negative) Urine Urobilinogen (<2.0) mg/dL Add Ur Microanalysis Leukocyte Esterase Rfl (Negative) HAROLDO/UL Urine RBC (0-2) /hpf Urine WBC (0-3) /hpf Ur Squamous Epith Cells (Few) /hpf Urine Bacteria /hpf Urine Casts Hyaline Casts (None) /lpf Urine Mucus /lpf Influenza A (RT-PCR) Negative (Negative) Influenza B (RT-PCR) Negative (Negative) RSV (RT-PCR) Negative (Negative) SARS-CoV-2 RNA (RT-PCR) Negative (Negative) 12/11/23 Range/Units 01:48 WBC (4.5-10.0) K/mm3 RBC (4.6-6.20) M/mm3 Hgb (14.0-18.0) g/dL Hct (42.0-52.0) % MCV (80-100) fl MCH (26-34) pg MCHC (32-36) g/dl RDW (11.5-14.5) % Plt Count (150-375) k/mm3 MPV (7.4-10.4) fl Immature Gran % (Auto) Neut % (Auto) Lymph % (Auto) Mclennan % (Auto) Eos % (Auto) Baso % (Auto) Lymph # (Auto) Mclennan # (Auto) Eos # (Auto) Baso # (Auto) Abs Immat Gran (auto) Absolute Neuts (auto) Absolute Nucleated RBC Total Counted Neutrophils % (Manual) (46-73) % Band Neutrophils % (0-6) % Lymphocytes % (Manual) (18-44) % Monocytes % (Manual) (3-9) % Nucleated RBC % Abs Neuts (Manual) (1.3-6.7) K/mm3 Abs Lymphs (Manual) (1.1-4.5) K/mm3 Abs Monocytes (Manual) (0.1-0.90) K/mm3 Platelet Estimate (Adequate) Schistocytes PT (11.1-14.7) Seconds INR APTT (22.3-36.8) Seconds Sodium (137-145) mmol/L Potassium (3.4-5.0) mmol/L Chloride (98-107) mmol/L Carbon Dioxide (22-30) mmol/L Anion Gap (4-12) mmol/L BUN (9-20) mg/dL Creatinine (0.7-1.3) mg/dL Estim Creat Clear Calc ml/min Estimated GFR (59 - ) Glucose (65-110) mg/dL Calcium (8.4-10.2) mg/dL Magnesium (1.6-2.3) mg/dL Total Bilirubin (0.2-1.3) mg/dL AST (17-59) U/L ALT (6-50) U/L Alkaline Phosphatase (38-126) U/L Troponin I (0.000-0.034) ng/mL NT-Pro-B Natriuret Pep (19.9-100) pg/mL Total Protein (6.3-8.2) g/dL Albumin (3.5-5.1) g/dL Lipase (23-300) U/L Urine Color Dark yellow (Yellow) Urine Appearance Clear (Clear) Urine pH 5.5 (5.0-9.0) Ur Specific [place] 1.024 (1.001-1.035) Urine Protein 2+ H (Negative) mg/dL Urine Glucose (UA) Negative (Negative) mg/dL Urine Ketones Negative (Negative) mg/dL Ur Blood (Man) Negative (Negative) Urine Nitrate Positive H (Negative) Urine Bilirubin 1+ H (Negative) Urine Urobilinogen 1.0 (<2.0) mg/dL Add Ur Microanalysis Reviewed Leukocyte Esterase Rfl Trace H (Negative) HAROLDO/UL Urine RBC 0-2 (0-2) /hpf Urine WBC 0-5 (0-3) /hpf Ur Squamous Epith Cells None seen (Few) /hpf Urine Bacteria None seen /hpf Urine Casts 3-5 Hyaline Casts Present (None) /lpf Urine Mucus Present /lpf Influenza A (RT-PCR) (Negative) Influenza B (RT-PCR) (Negative) RSV (RT-PCR) (Negative) SARS-CoV-2 RNA (RT-PCR) (Negative) <Jennifer Majano PA-C - Last Filed: 12/11/23 14:43> Lab Results 12/10/23 12/10/23 12/11/23 Range/Units 16:40 22:08 01:46 WBC 7.6 (4.5-10.0) K/mm3 RBC 3.97 L (4.6-6.20) M/mm3 Hgb 13.1 L (14.0-18.0) g/dL Hct 35.8 L (42.0-52.0) % MCV 90.2 (80-100) fl MCH 33.0 (26-34) pg MCHC 36.6 H (32-36) g/dl RDW 13.0 (11.5-14.5) % Plt Count 175 (150-375) k/mm3 MPV 10.4 (7.4-10.4) fl Immature Gran % (Auto) Not Reportable Neut % (Auto) Not Reportable Lymph % (Auto) Not Reportable Mclennan % (Auto) Not Reportable Eos % (Auto) Not Reportable Baso % (Auto) Not Reportable Lymph # (Auto) Not Reportable Mclennan # (Auto) Not Reportable Eos # (Auto) Not Reportable Baso # (Auto) Not Reportable Abs Immat Gran (auto) Not Reportable Absolute Neuts (auto) Not Reportable Absolute Nucleated RBC Not Reportable Total Counted 100 Neutrophils % (Manual) 86 H (46-73) % Band Neutrophils % 8 H (0-6) % Lymphocytes % (Manual) 2.0 L (18-44) % Monocytes % (Manual) 4 (3-9) % Nucleated RBC % Not Reportable Abs Neuts (Manual) 7.14 H (1.3-6.7) K/mm3 Abs Lymphs (Manual) 0.15 L (1.1-4.5) K/mm3 Abs Monocytes (Manual) 0.30 (0.1-0.90) K/mm3 Platelet Estimate Adequate (Adequate) Schistocytes None seen PT 15.3 H (11.1-14.7) Seconds INR 1.2 APTT 40.2 H (22.3-36.8) Seconds Sodium 127 L 126 L (137-145) mmol/L Potassium 4.4 3.6 (3.4-5.0) mmol/L Chloride 92 L 95 L (98-107) mmol/L Carbon Dioxide 23 20 L (22-30) mmol/L Anion Gap 12 11 (4-12) mmol/L BUN 41 H D 47 H (9-20) mg/dL Creatinine 1.20 1.30 (0.7-1.3) mg/dL Estim Creat Clear Calc 47 43 ml/min Estimated GFR 59 54 L (59 - ) Glucose 146 H 110 (65-110) mg/dL Calcium 8.9 8.2 L (8.4-10.2) mg/dL Magnesium 2.1 (1.6-2.3) mg/dL Total Bilirubin 2.0 H (0.2-1.3) mg/dL AST 113 H (17-59) U/L ALT 73 H (6-50) U/L Alkaline Phosphatase 87 (38-126) U/L Troponin I 0.048 H* 0.038 H* (0.000-0.034) ng/mL NT-Pro-B Natriuret Pep 33595 H (19.9-100) pg/mL Total Protein 9.0 H (6.3-8.2) g/dL Albumin 4.4 (3.5-5.1) g/dL Lipase 92 113 (23-300) U/L Urine Color (Yellow) Urine Appearance (Clear) Urine pH (5.0-9.0) Ur Specific [place] (1.001-1.035) Urine Protein (Negative) mg/dL Urine Glucose (UA) (Negative) mg/dL Urine Ketones (Negative) mg/dL Ur Blood (Man) (Negative) Urine Nitrate (Negative) Urine Bilirubin (Negative) Urine Urobilinogen (<2.0) mg/dL Add Ur Microanalysis Leukocyte Esterase Rfl (Negative) HAROLDO/UL Urine RBC (0-2) /hpf Urine WBC (0-3) /hpf Ur Squamous Epith Cells (Few) /hpf Urine Bacteria /hpf Urine Casts Hyaline Casts (None) /lpf Urine Mucus /lpf Influenza A (RT-PCR) Negative (Negative) Influenza B (RT-PCR) Negative (Negative) RSV (RT-PCR) Negative (Negative) SARS-CoV-2 RNA (RT-PCR) Negative (Negative) 12/11/23 Range/Units 01:48 WBC (4.5-10.0) K/mm3 RBC (4.6-6.20) M/mm3 Hgb (14.0-18.0) g/dL Hct (42.0-52.0) % MCV (80-100) fl MCH (26-34) pg MCHC (32-36) g/dl RDW (11.5-14.5) % Plt Count (150-375) k/mm3 MPV (7.4-10.4) fl Immature Gran % (Auto) Neut % (Auto) Lymph % (Auto) Mclennan % (Auto) Eos % (Auto) Baso % (Auto) Lymph # (Auto) Mclennan # (Auto) Eos # (Auto) Baso # (Auto) Abs Immat Gran (auto) Absolute Neuts (auto) Absolute Nucleated RBC Total Counted Neutrophils % (Manual) (46-73) % Band Neutrophils % (0-6) % Lymphocytes % (Manual) (18-44) % Monocytes % (Manual) (3-9) % Nucleated RBC % Abs Neuts (Manual) (1.3-6.7) K/mm3 Abs Lymphs (Manual) (1.1-4.5) K/mm3 Abs Monocytes (Manual) (0.1-0.90) K/mm3 Platelet Estimate (Adequate) Schistocytes PT (11.1-14.7) Seconds INR APTT (22.3-36.8) Seconds Sodium (137-145) mmol/L Potassium (3.4-5.0) mmol/L Chloride (98-107) mmol/L Carbon Dioxide (22-30) mmol/L Anion Gap (4-12) mmol/L BUN (9-20) mg/dL Creatinine (0.7-1.3) mg/dL Estim Creat Clear Calc ml/min Estimated GFR (59 - ) Glucose (65-110) mg/dL Calcium (8.4-10.2) mg/dL Magnesium (1.6-2.3) mg/dL Total Bilirubin (0.2-1.3) mg/dL AST (17-59) U/L ALT (6-50) U/L Alkaline Phosphatase (38-126) U/L Troponin I (0.000-0.034) ng/mL NT-Pro-B Natriuret Pep (19.9-100) pg/mL Total Protein (6.3-8.2) g/dL Albumin (3.5-5.1) g/dL Lipase (23-300) U/L Urine Color Dark yellow (Yellow) Urine Appearance Clear (Clear) Urine pH 5.5 (5.0-9.0) Ur Specific [place] 1.024 (1.001-1.035) Urine Protein 2+ H (Negative) mg/dL Urine Glucose (UA) Negative (Negative) mg/dL Urine Ketones Negative (Negative) mg/dL Ur Blood (Man) Negative (Negative) Urine Nitrate Positive H (Negative) Urine Bilirubin 1+ H (Negative) Urine Urobilinogen 1.0 (<2.0) mg/dL Add Ur Microanalysis Reviewed Leukocyte Esterase Rfl Trace H (Negative) HAROLDO/UL Urine RBC 0-2 (0-2) /hpf Urine WBC 0-5 (0-3) /hpf Ur Squamous Epith Cells None seen (Few) /hpf Urine Bacteria None seen /hpf Urine Casts 3-5 Hyaline Casts Present (None) /lpf Urine Mucus Present /lpf Influenza A (RT-PCR) (Negative) Influenza B (RT-PCR) (Negative) RSV (RT-PCR) (Negative) SARS-CoV-2 RNA (RT-PCR) (Negative) <Patricia Hunter, CUSTOMER PROGRAM SPECIALIST - Last Filed: 12/11/23 03:15> Lab Results 12/10/23 12/10/23 12/11/23 Range/Units 16:40 22:08 01:46 WBC 7.6 (4.5-10.0) K/mm3 RBC 3.97 L (4.6-6.20) M/mm3 Hgb 13.1 L (14.0-18.0) g/dL Hct 35.8 L (42.0-52.0) % MCV 90.2 (80-100) fl MCH 33.0 (26-34) pg MCHC 36.6 H (32-36) g/dl RDW 13.0 (11.5-14.5) % Plt Count 175 (150-375) k/mm3 MPV 10.4 (7.4-10.4) fl Immature Gran % (Auto) Not Reportable Neut % (Auto) Not Reportable Lymph % (Auto) Not Reportable Mclennan % (Auto) Not Reportable Eos % (Auto) Not Reportable Baso % (Auto) Not Reportable Lymph # (Auto) Not Reportable Mclennan # (Auto) Not Reportable Eos # (Auto) Not Reportable Baso # (Auto) Not Reportable Abs Immat Gran (auto) Not Reportable Absolute Neuts (auto) Not Reportable Absolute Nucleated RBC Not Reportable Total Counted 100 Neutrophils % (Manual) 86 H (46-73) % Band Neutrophils % 8 H (0-6) % Lymphocytes % (Manual) 2.0 L (18-44) % Monocytes % (Manual) 4 (3-9) % Nucleated RBC % Not Reportable Abs Neuts (Manual) 7.14 H (1.3-6.7) K/mm3 Abs Lymphs (Manual) 0.15 L (1.1-4.5) K/mm3 Abs Monocytes (Manual) 0.30 (0.1-0.90) K/mm3 Platelet Estimate Adequate (Adequate) Schistocytes None seen PT 15.3 H (11.1-14.7) Seconds INR 1.2 APTT 40.2 H (22.3-36.8) Seconds Sodium 127 L 126 L (137-145) mmol/L Potassium 4.4 3.6 (3.4-5.0) mmol/L Chloride 92 L 95 L (98-107) mmol/L Carbon Dioxide 23 20 L (22-30) mmol/L Anion Gap 12 11 (4-12) mmol/L BUN 41 H D 47 H (9-20) mg/dL Creatinine 1.20 1.30 (0.7-1.3) mg/dL Estim Creat Clear Calc 47 43 ml/min Estimated GFR 59 54 L (59 - ) Glucose 146 H 110 (65-110) mg/dL Calcium 8.9 8.2 L (8.4-10.2) mg/dL Magnesium 2.1 (1.6-2.3) mg/dL Total Bilirubin 2.0 H (0.2-1.3) mg/dL AST 113 H (17-59) U/L ALT 73 H (6-50) U/L Alkaline Phosphatase 87 (38-126) U/L Troponin I 0.048 H* 0.038 H* (0.000-0.034) ng/mL NT-Pro-B Natriuret Pep 79738 H (19.9-100) pg/mL Total Protein 9.0 H (6.3-8.2) g/dL Albumin 4.4 (3.5-5.1) g/dL Lipase 92 113 (23-300) U/L Urine Color (Yellow) Urine Appearance (Clear) Urine pH (5.0-9.0) Ur Specific [place] (1.001-1.035) Urine Protein (Negative) mg/dL Urine Glucose (UA) (Negative) mg/dL Urine Ketones (Negative) mg/dL Ur Blood (Man) (Negative) Urine Nitrate (Negative) Urine Bilirubin (Negative) Urine Urobilinogen (<2.0) mg/dL Add Ur Microanalysis Leukocyte Esterase Rfl (Negative) HAROLDO/UL Urine RBC (0-2) /hpf Urine WBC (0-3) /hpf Ur Squamous Epith Cells (Few) /hpf Urine Bacteria /hpf Urine Casts Hyaline Casts (None) /lpf Urine Mucus /lpf Influenza A (RT-PCR) Negative (Negative) Influenza B (RT-PCR) Negative (Negative) RSV (RT-PCR) Negative (Negative) SARS-CoV-2 RNA (RT-PCR) Negative (Negative) 12/11/23 Range/Units 01:48 WBC (4.5-10.0) K/mm3 RBC (4.6-6.20) M/mm3 Hgb (14.0-18.0) g/dL Hct (42.0-52.0) % MCV (80-100) fl MCH (26-34) pg MCHC (32-36) g/dl RDW (11.5-14.5) % Plt Count (150-375) k/mm3 MPV (7.4-10.4) fl Immature Gran % (Auto) Neut % (Auto) Lymph % (Auto) Mclennan % (Auto) Eos % (Auto) Baso % (Auto) Lymph # (Auto) Mclennan # (Auto) Eos # (Auto) Baso # (Auto) Abs Immat Gran (auto) Absolute Neuts (auto) Absolute Nucleated RBC Total Counted Neutrophils % (Manual) (46-73) % Band Neutrophils % (0-6) % Lymphocytes % (Manual) (18-44) % Monocytes % (Manual) (3-9) % Nucleated RBC % Abs Neuts (Manual) (1.3-6.7) K/mm3 Abs Lymphs (Manual) (1.1-4.5) K/mm3 Abs Monocytes (Manual) (0.1-0.90) K/mm3 Platelet Estimate (Adequate) Schistocytes PT (11.1-14.7) Seconds INR APTT (22.3-36.8) Seconds Sodium (137-145) mmol/L Potassium (3.4-5.0) mmol/L Chloride (98-107) mmol/L Carbon Dioxide (22-30) mmol/L Anion Gap (4-12) mmol/L BUN (9-20) mg/dL Creatinine (0.7-1.3) mg/dL Estim Creat Clear Calc ml/min Estimated GFR (59 - ) Glucose (65-110) mg/dL Calcium (8.4-10.2) mg/dL Magnesium (1.6-2.3) mg/dL Total Bilirubin (0.2-1.3) mg/dL AST (17-59) U/L ALT (6-50) U/L Alkaline Phosphatase (38-126) U/L Troponin I (0.000-0.034) ng/mL NT-Pro-B Natriuret Pep (19.9-100) pg/mL Total Protein (6.3-8.2) g/dL Albumin (3.5-5.1) g/dL Lipase (23-300) U/L Urine Color Dark yellow (Yellow) Urine Appearance Clear (Clear) Urine pH 5.5 (5.0-9.0) Ur Specific [place] 1.024 (1.001-1.035) Urine Protein 2+ H (Negative) mg/dL Urine Glucose (UA) Negative (Negative) mg/dL Urine Ketones Negative (Negative) mg/dL Ur Blood (Man) Negative (Negative) Urine Nitrate Positive H (Negative) Urine Bilirubin 1+ H (Negative) Urine Urobilinogen 1.0 (<2.0) mg/dL Add Ur Microanalysis Reviewed Leukocyte Esterase Rfl Trace H (Negative) HAROLDO/UL Urine RBC 0-2 (0-2) /hpf Urine WBC 0-5 (0-3) /hpf Ur Squamous Epith Cells None seen (Few) /hpf Urine Bacteria None seen /hpf Urine Casts 3-5 Hyaline Casts Present (None) /lpf Urine Mucus Present /lpf Influenza A (RT-PCR) (Negative) Influenza B (RT-PCR) (Negative) RSV (RT-PCR) (Negative) SARS-CoV-2 RNA (RT-PCR) (Negative) <Cleo Weston MD - Last Filed: 12/11/23 04:57> Imaging Data Attestation: I personally reviewed and interpreted this imaging study as follows: <Patricia Hunter APRN - Last Filed: 12/11/23 03:15> Radiologist's impression: Impressions Chest X-Ray 12/10/23 17:25 IMPRESSION: 1. No acute cardiopulmonary disease. <Patricia Hunter APRN - Last Filed: 12/11/23 03:15> ECG Data EKG #1: Attestation: I personally reviewed and interpreted this ECG as follows: <Patricia Hunter APRN - Last Filed: 12/11/23 03:15> ECG completion date: 12/11/23 <Patricia Hunter APRN - Last Filed: 12/11/23 03:15> ECG completion time: 16:11 <Patricia Hunter APRN - Last Filed: 12/11/23 03:15> Prior ECG tracings: available for review <Patricia Hunter APRN - Last Filed: 12/11/23 03:15> Interpretation: Qt [id number] Qtc 519 <Patricia Hunter APRN - Last Filed: 12/11/23 03:15> EKG Interpretation: normal rate and widened QRS <Patricia Hunter APRN - Last Filed: 12/11/23 03:15> Pacemaker function: normal pacer function <Patricia Hunter APRN - Last Filed: 12/11/23 03:15> Discharge Plan Discharge Clinical Impression: Acute UTI, Dehydration, Hyponatremia <Jennifer Majano PA-C - Last Filed: 12/11/23 14:43> Patient Disposition: Still a Patient <Jennifer Majano PA-C - Last Filed: 12/11/23 14:43> Condition: Stable <Jennifer Majano PA-C - Last Filed: 12/11/23 14:43>
[2023-12-10 16:49] LABS: Hematocrit 35.8 % (42.0-52.0); Hemoglobin 13.1 g/dL (14.0-18.0); Mean Corpuscular HGB Conc 36.6 g/dl (32-36); Mean Corpuscular Volume 90.2 fl (80-100); Mean Platelet Volume 10.4 fl (7.4-10.4); Platelet Count Result 175 k/mm3 (150-375); Red Blood Count 3.97 M/mm3 (4.6-6.20); White Blood Count 7.6 K/mm3 (4.5-10.0)
[2023-12-10 16:59] LABS: Alanine Aminotransferase 73 U/L (6-50); Albumin Level 4.4 g/dL (3.5-5.1); Alkaline Phosphatase 87 U/L (38-126); Anion Gap 12 mmol/L (4-12); Aspartate Amino Transferase 113 U/L (17-59); Blood Urea Nitrogen 41 mg/dL (9-20); Calcium 8.9 mg/dL (8.4-10.2); Carbon Dioxide 23 mmol/L (22-30); Chloride 92 mmol/L (98-107); Estimated CRCL calculation 47 ml/min; Estimated Glomerular Filt Rate 59; Glucose 146 mg/dL (65-110); INR 1.2; Lipase 92 U/L (23-300); Potassium 4.4 mmol/L (3.4-5.0); Prothrombin Time 15.3 Seconds (11.1-14.7); Sodium 127 mmol/L (137-145)
[2023-12-10 17:00] LABS: Partial Thromboplastin Time 40.2 Seconds (22.3-36.8)
[2023-12-10 17:32] LABS: Band Neutrophils Percent 8 % (0-6); Lymphocytes Absolute Manual 0.15 K/mm3 (1.1-4.5); Monocytes Percent Manual 4 % (3-9); Neutrophils Absolute Manual 7.14 K/mm3 (1.3-6.7); Neutrophils Percent Manual 86 % (46-73); Platelet Estimate Adequate (Adequate); Schistocytes None Seen; Total Cells Counted 100
[2023-12-10 21:13] VITALS: PULSE 87; RESP 28; O2SAT 98
[2023-12-10 21:16] VITALS: BP 120/73; PULSE 87; RESP 20; O2SAT 95
[2023-12-10 21:59] VITALS: BP 116/62; RESP 20; O2SAT 96
[2023-12-10] MEDS: SODIUM CHLORIDE 0.9% IV 500 ML IV CONT (22:01)
[2023-12-10 22:11] LABS: Magnesium 2.1 mg/dL (1.6-2.3)
[2023-12-10 22:16] VITALS: BP 119/63; PULSE 82; RESP 24; O2SAT 97
[2023-12-10 22:27] LABS: Troponin I 0.048 ng/mL (0.000-0.034)
[2023-12-10 22:31] VITALS: BP 115/82; PULSE 81; RESP 15; O2SAT 97
[2023-12-10 22:48] LABS: Influenza A QL RT-PCR Negative (Negative); Influenza B QL RT-PCR Negative (Negative); RSV RNA, RT-PCR Negative (Negative); SARS-CoV-2 RNA PCR Negative (Negative)
[2023-12-11] VITALS (15 sets, daily range): BP systolic 114–132; BP diastolic 56–72; PULSE 74–87; RESP 14–18; TEMP 36.2–36.9; O2SAT 95–99; BMI 25.7
[2023-12-11] MEDS: SODIUM CHLORIDE 0.9% IV 500 ML IV CONT (01:53)
[2023-12-11 02:23] LABS: Add Urine Microscopic? YES; Appearance Urine Clear (Clear); Bacteria Urine None Seen /hpf; Bilirubin Urine 1+ (Negative); Blood Urine Negative (Negative); Color Urine Dark Yellow (Yellow); Glucose Urine UA Negative (Negative); Hyaline Casts Urine Present /lpf; Ketones Urine Negative (Negative); Leukocyte Esterase Ur Trace LEU/UL (Negative); Mucus Urine Present /lpf; Need Manual Microscopic Reviewed; Nitrate Urine Positive (Negative); Protein Urine 2+ mg/dL (Negative); RBC Urine 0-2 /hpf (0-2); Specific Grav Ur 1.024 (1.001-1.035); Squamous Epithelial Cell Urine None Seen /hpf (Few); WBC Urine 0-5 /hpf (0-3); pH Urine 5.5 (5.0-9.0)
[2023-12-11 02:33] LABS: Troponin I 0.038 ng/mL (0.000-0.034)
--- NOTE | 2023-12-11 02:38 | P.HP_ITS ---
H&P: HPI History of Present Illness Date/Time: 12/11/23 02:38 Chief Complaint: feeling lousy Narrative: 78year old male, pt history of heart disease and recent pacemaker @2 weeks ago has been feeling lousy for 3-4 days. Pt has been weak not eating pt went to [facility] but was sent home the next day pt unsure of what he had there. Pt denies vomiting or diarrhea or fever bp have been low on admission. so far trop mildly elevated cxr is nl and cultures are pending Pt admitted for sepsis, UTI and dehydration. Elevated troponin likely related to urine infection. Review of Systems Review of Systems: pt feeling lousy low bps low appetite no other complaints all other 12 systems reviewed with pt PMFSH Family History Family History Sibling Family history of migraine headaches Family history of type 2 diabetes mellitus Mother Family history of malignant neoplasm Patient's mother is Father Patient's father is , Onset Age: 73 Social History Social History Smoking packs per day: 2 Smoking cigarettes per day: 40.0 Years smoked: 50 Smoking pack-years: 100.00 Smoking status: Former smoker Tobacco type: cigarettes Second hand tobacco smoke exposure: No Smoking end date: 01/13/17 Alcohol intake: current Drinks per week: 12 Alcohol use details: beer Substance use: never Substance use type: does not use Last use: 2017 Lack of Transportation: No Lack of Food: Never True Current Housing: I Have Housing Concerned About Future Housing: No Difficulty Paying Gas/Electric Bills: No Difficulty Paying for Meds: No Currently Unemployed: No Education: High School Diploma/GED Difficulty w/ Childcare or Family Care: No Living arrangements: alone Spiritual care concerns: No Meds Home Medications and Allergies Home Medications Medication Instructions Recorded Confirmed Type aspirin 81 mg tablet,delayed 81 mg PO DAILY 05/11/23 11/08/23 History release (Adult Aspirin Regimen) ticagrelor 90 mg tablet 90 mg PO Q12H 05/11/23 11/08/23 History lisinopril 10 mg tablet 10 mg PO DAILY #90 tabs 06/22/23 11/08/23 Rx lovastatin 40 mg tablet 40 mg PO QPM #90 tabs 07/26/23 11/08/23 Rx sildenafil (pulm.hypertension) 20 20 mg PO TID #30 tabs 11/08/23 11/08/23 Rx mg tablet Allergies Allergy/AdvReac Type Severity Reaction Status Date / Time Penicillins Allergy Mild rash Verified 11/08/23 11:12 Vital Signs Vital Signs - 24 hr 12/10/23 16:01 12/10/23 21:59 12/10/23 21:13 Temperature 36.7 C Pulse Rate 102 H 87 Respiratory Rate 16 20 28 H Blood Pressure 97/80 L 116/62 Pulse Oximetry 95 96 98 Oxygen Delivery Room Air Room Air 12/10/23 21:16 Temperature Pulse Rate 87 Respiratory Rate 20 Blood Pressure 120/73 Pulse Oximetry 95 Oxygen Delivery Exam Const: General: thin (frail weak pale appearing man underweight ); No in distress Nutritional Appearance: overweight Orientation/consciousness: oriented to person HENMT: Head: normal to inspection Resp: Effort & Inspection: no respiratory distress Auscultation: no rhonchi and no wheezes Cardio: Rate: regular rate Rhythm: regular rhythm Other: recent pacemaker GI: Inspection: normal to inspection GI Palp: No abdominal tenderness, No Guarding due to palpation present (GI) and No Hepatomegaly present Auscultation: normal bowel sounds Neuro: General: oriented to person Extrem: Other: no edema in peripheries Psych: Other: good mood calm pleasant oriented x3 H&P: Results Labs Labs: Short CBC 12/10/23 Range/Units 16:40 WBC 7.6 (4.5-10.0) K/mm3 Hgb 13.1 L (14.0-18.0) g/dL Hct 35.8 L (42.0-52.0) % Plt Count 175 (150-375) k/mm3 BMP 12/10/23 16:40 Sodium 127 L Potassium 4.4 Chloride 92 L Carbon Dioxide 23 BUN 41 H D Creatinine 1.20 Glucose 146 H Calcium 8.9 Cardiac Enzymes 12/10/23 12/11/23 Range/Units 16:40 01:46 Troponin I 0.048 H* 0.038 H* (0.000-0.034) ng/mL Liver Function 12/10/23 Range/Units 16:40 Total Bilirubin 2.0 H (0.2-1.3) mg/dL AST 113 H (17-59) U/L ALT 73 H (6-50) U/L Alkaline Phosphatase 87 (38-126) U/L Albumin 4.4 (3.5-5.1) g/dL Urine 12/11/23 Range/Units 01:48 Urine Color Dark yellow (Yellow) Urine Appearance Clear (Clear) Urine pH 5.5 (5.0-9.0) Ur Specific [place] 1.024 (1.001-1.035) Urine Protein 2+ H (Negative) mg/dL Urine Glucose (UA) Negative (Negative) mg/dL Assessment and Plan Assessment and plan (1) UTI (urinary tract infection): Code(s): N39.0 - Urinary tract infection, site not specified Status: Acute Assessment and Plan: abnl ua, await uc treat for uti with iv rocephin (2) Dehydration: Code(s): E86.0 - Dehydration Status: Acute Assessment and Plan: hydrate with fluids bp appears corrected now check orthostatics in am (3) Sepsis: Code(s): A41.9 - Sepsis, unspecified organism Status: Acute Assessment and Plan: check serial lactic levels hydrate with fluids continue iv abx for uti likely source of infection (4) Benign essential hypertension: Code(s): I10 - Essential (primary) hypertension Status: Acute Assessment and Plan: continue blood pressure medications hold bp meds if sbp less than 100 (5) Status post insertion of drug-eluting stent into left anterior descending (LAD) artery for coronary artery disease: Code(s): Z95.5 - Presence of coronary angioplasty implant and graft Status: Acute Assessment and Plan: continue medications for cad known pt for Dr Mcgregor pt had recent pacemaker Plan hyponatremia - watch bmp and sodium levels after fluid hydration hyperglycemia - order hbaic to rule out dm raised lfts - ? fatty liver or statin related mildly elevated trop likely infection related dvt prop - brinilat add scd code - pt remains full code Hospitalist MIPS Advance Care Plan I have confirmed that the patient's Advanced Care Plan is present, code status is documented, or surrogate decision maker is listed in patient medical record.: Yes Medication Reconciliation I have utilized all available resources to obtain, update and review the patients current medications (includes all prescriptions, OTC, herbals, cannabis, and nutritional supplements).: Yes
[2023-12-11] MEDS: DOXYCYCLINE 100 MG/NS 100 ML 100 MG/100 ML BAG IVPB ×2 (02:58→15:03)
[2023-12-11 04:16] LABS: Anion Gap 11 mmol/L (4-12); Blood Urea Nitrogen 47 mg/dL (9-20); Calcium 8.2 mg/dL (8.4-10.2); Carbon Dioxide 20 mmol/L (22-30); Chloride 95 mmol/L (98-107); Estimated CRCL calculation 43 ml/min; Estimated Glomerular Filt Rate 54; Glucose 110 mg/dL (65-110); Lipase 113 U/L (23-300); Potassium 3.6 mmol/L (3.4-5.0); Sodium 126 mmol/L (137-145)
[2023-12-11 04:25] LABS: NT Pro B Type Natriuretic Pept 16100 pg/mL (19.9-100)
[2023-12-11] MEDS: DEXTROSE 5%/0.45% SOD CHL 1,000 ML 70 ML IV CONT ×2 (04:40→19:54)
--- NOTE | 2023-12-11 05:04 | PC.NURSE ---
This patient, Henry Bearden, was admitted to IMU Room 210-01 at 0421. Patient/family oriented to hospital policies and general routines including ID bracelet, bed and alarms, visiting hours, pain management, procedures, bathroom and other care routines, personal items, smoking policy, room service/diet, and visiting hours. Information on how to activate the Rapid Response Team has been discussed. Patient/Family are encouraged to report perceived risks to care and to ask questions if they do not understand what they are told or what they should do.
[2023-12-11 06:41] LABS: Troponin I 0.034 ng/mL (0.000-0.034)
[2023-12-11] MEDS: LOVASTATIN 20 MG TABLET 40 MG PO (08:52)
[2023-12-11] MEDS: ASPIRIN 81 MG CHEWABLE TABLET PO (08:53)
[2023-12-11] MEDS: TICAGRELOR 90 MG TABLET PO ×2 (08:53→21:15)
--- NOTE | 2023-12-11 12:13 | P.CONCA_ITS ---
Assessment and Plan Assessment and plan (1) Sepsis: Code(s): A41.9 - Sepsis, unspecified organism Status: Acute Assessment and Plan: Management as per primary team (2) UTI (urinary tract infection): Code(s): N39.0 - Urinary tract infection, site not specified Status: Acute Assessment and Plan: Management as per primary team (3) Elevated troponin: Code(s): R79.89 - Other specified abnormal findings of blood chemistry Status: Acute Assessment and Plan: Minimally elevated and flat. In the setting of sepsis, UTI. This is not an acute coronary syndrome. No further workup needs to be done for this. (4) Coronary artery disease: Code(s): I25.10 - Atherosclerotic heart disease of alutiiq coronary artery without angina pectoris Status: Acute Assessment and Plan: Stable. Continue ASA, Brilinta, statin. (5) Benign essential hypertension: Code(s): I10 - Essential (primary) hypertension Status: Acute Assessment and Plan: Stable. Continue home antihypertensive regimen. (6) Hyperlipidemia: Code(s): E78.5 - Hyperlipidemia, unspecified Status: Acute Assessment and Plan: Continue statin. (7) Chronic heart failure with reduced ejection fraction (HFrEF, <= 40%): Code(s): I50.22 - Chronic systolic (congestive) heart failure Status: Acute Assessment and Plan: Stable. Continue home heart failure GDMT. (8) Pacemaker: Code(s): Z95.0 - Presence of cardiac pacemaker Status: Acute Assessment and Plan: Appears to be a Biotronik device based on CXR. Will have it interrogated. Plan Cardiology will follow along as needed. Recommendations and plan discussed with Hospitalist. History of Present Illness History of Present Illness Consult date/time: 12/11/23 12:13 Requesting physician: Patricia Hunter APRN Consult reason: Other (Elevated troponins ) Reason For Visit: UTI/NSTEMI Narrative: This is a 78 year old male with CAD s/p PCI, chronic heart failure with reduced LVEF, hypertension, hyperlipidemia who presented to [place] ER for generalized weakness. This has been worsening over the past few months. Has not eaten much or drank fluids in the past couple of days. He is admitted for sepsis, UT and dehydration. We are consulted for elevated troponin levels. Initial troponin level of 0.048, with repeat at 0.038 and third level at 0.034. NT pro BNP of 16,100. CXR with no acute findings. Patient was recently admitted to [facility] earlier this week, but we do not have those records. History obtained from the patient, along with son who was at bedside. OSH records from [facility] were personally reviewed and noted as below. Cardiac catheterization from February 2023 was personally reviewed and noted as below. OSH Epic records were personally reviewed and noted below. Patient was admitted to [facility] at the end of November. He was sent from cardiac rehab to [facility] [place] for hypertension and bradycardia. SBP in the 180s and heart rate in the 40s. Heart rate as low as the 30s in the ED. EKG showed LBBB with 2:1 AVB. Not on any rate lowering medications at that time. Evaluated by [facility]. Noted to have CHB on telemetry overnight. Underwent permanent pacemaker placement. Echocardiogram that admission showed an LVEF of 40%. Cardiac catheterization 02/09/2023: Successful IVUS-guided rotational atherectomy and PCI of the RCA using JD x 2, successful IVUS-guided PCI of the LAD using 1 JD. Medical management for [facility] [employer] MACHINE. Transthoracic echocardiogram 12/01/2023 shows: Moderate concentric LVH. Moderate enlargement of LV cavity. Moderate-severe global LV systolic dysfunction with more prominent inferior and inferolateral hypokinesis. Paradoxical septal motion consistent with bundle branch block. Grade 1 diastolic dysfunction. LVEF 35%. Normal RVSF. Mild-moderate MR. Mild AR. Mild TR. Mild pulmonary hypertension. Review of Systems Review of Systems: All systems reviewed & are unremarkable except as noted in HPI and below (HPI) [facility] Family History Family History Sibling Family history of migraine headaches Family history of type 2 diabetes mellitus Mother Family history of malignant neoplasm Patient's mother is Father Patient's father is , Onset Age: 73 Social History Social History Smoking packs per day: 2 Smoking cigarettes per day: 40.0 Years smoked: 50 Smoking pack-years: 100.00 Smoking status: Former smoker Tobacco type: cigarettes Second hand tobacco smoke exposure: No Smoking end date: 01/13/17 Alcohol intake: current Drinks per week: 12 Alcohol use details: beer Substance use: current Substance use type: does not use Last use: 2017 Do You Feel Safe in your Home?: Yes Lack of Transportation: No Lack of Food: Never True Current Housing: I Have Housing Concerned About Future Housing: No Difficulty Paying Gas/Electric Bills: No Difficulty Paying for Meds: No Currently Unemployed: No Education: Decline to Answer Difficulty w/ Childcare or Family Care: No Living arrangements: alone Spiritual care concerns: No Meds Home Medications and Allergies Home Medications Medication Instructions Recorded Confirmed Type aspirin 81 mg tablet,delayed 81 mg PO DAILY 05/11/23 12/11/23 History release (Adult Aspirin Regimen) ticagrelor 90 mg tablet 90 mg PO Q12H 05/11/23 12/11/23 History lisinopril 10 mg tablet 10 mg PO DAILY #90 tabs 06/22/23 12/11/23 Rx lovastatin 40 mg tablet 40 mg PO QPM #90 tabs 07/26/23 12/11/23 Rx carvedilol 3.125 mg tablet 3.125 mg PO BID 12/11/23 12/11/23 History hydralazine 25 mg tablet 25 mg PO DAILY 12/11/23 12/11/23 History sildenafil (pulm.hypertension) 20 20 mg PO TID PRN Sexual Activity 12/11/23 12/11/23 History mg tablet Allergies Allergy/AdvReac Type Severity Reaction Status Date / Time Penicillins Allergy Mild rash Verified 12/11/23 04:28 Vital Signs Vital Signs - 24 hr 12/10/23 16:01 12/10/23 21:59 12/10/23 21:13 Temperature 36.7 C Pulse Rate 102 H 87 Respiratory Rate 16 20 28 H Blood Pressure 97/80 L 116/62 Pulse Oximetry 95 96 98 Oxygen Delivery Room Air Room Air 12/10/23 21:16 12/10/23 22:16 12/10/23 22:31 Temperature Pulse Rate 87 82 81 Respiratory Rate 20 24 H 15 Blood Pressure 120/73 119/63 115/82 Pulse Oximetry 95 97 97 Oxygen Delivery 12/11/23 03:00 12/11/23 03:27 12/11/23 04:26 Temperature Pulse Rate 78 81 Respiratory Rate Blood Pressure 120/72 Pulse Oximetry 97 97 Oxygen Delivery Room Air 12/11/23 04:31 12/11/23 04:30 12/11/23 06:00 Temperature 36.2 C L Pulse Rate 86 76 Respiratory Rate 18 Blood Pressure 132/64 Pulse Oximetry 99 Oxygen Delivery Room Air 12/11/23 08:00 12/11/23 08:00 12/11/23 08:00 Temperature 36.9 C Pulse Rate 74 74 74 Respiratory Rate 14 14 Blood Pressure 114/56 L Pulse Oximetry 98 98 Oxygen Delivery Room Air 12/11/23 10:00 12/11/23 11:43 Temperature 36.4 C Pulse Rate 86 80 Respiratory Rate 16 Blood Pressure 121/65 Pulse Oximetry 98 Oxygen Delivery Exam Const: General: comfortable and no acute distress HENMT: Mouth: Yes dry mucous membranes Eyes: General: appearance normal, both eyes and all related structures Sclera: sclerae normal Resp: Effort & Inspection: normal respiratory effort Auscultation: clear to auscultation bilaterally Cardio: Rate: regular rate Rhythm: regular rhythm Heart sounds: no murmurs Skin: General skin exam: normal color Neuro: Speech: normal speech Psych: Mental Status: mental status grossly normal Affect: normal affect Results Labs and Meds 12/10/23 16:40 12/11/23 01:46 Lab results: Cardiac Enzymes 12/10/23 12/11/23 12/11/23 Range/Units 16:40 01:46 06:06 AST 113 H (17-59) U/L Troponin I 0.048 H* 0.038 H* 0.034 (0.000-0.034) ng/mL Coagulation 12/10/23 Range/Units 16:40 PT 15.3 H (11.1-14.7) Seconds APTT 40.2 H (22.3-36.8) Seconds CBC 12/10/23 Range/Units 16:40 WBC 7.6 (4.5-10.0) K/mm3 RBC 3.97 L (4.6-6.20) M/mm3 Hgb 13.1 L (14.0-18.0) g/dL Hct 35.8 L (42.0-52.0) % Plt Count 175 (150-375) k/mm3 Lymph # (Auto) Not Reportable [place] # (Auto) Not Reportable Eos # (Auto) Not Reportable Baso # (Auto) Not Reportable Comprehensive Metabolic Panel 12/10/23 12/11/23 Range/Units 16:40 01:46 Sodium 127 L 126 L (137-145) mmol/L Potassium 4.4 3.6 (3.4-5.0) mmol/L Chloride 92 L 95 L (98-107) mmol/L Carbon Dioxide 23 20 L (22-30) mmol/L BUN 41 H D 47 H (9-20) mg/dL Creatinine 1.20 1.30 (0.7-1.3) mg/dL Glucose 146 H 110 (65-110) mg/dL Calcium 8.9 8.2 L (8.4-10.2) mg/dL AST 113 H (17-59) U/L ALT 73 H (6-50) U/L Alkaline Phosphatase 87 (38-126) U/L Total Protein 9.0 H (6.3-8.2) g/dL Albumin 4.4 (3.5-5.1) g/dL Intake and Output 12/10/23 12/11/23 12/11/23 23:59 07:59 15:59 Intake Total 500 500 Output Total 100 Balance 500 400 Intake: IV 500 500 Sodium Chloride 0.9% IV 500 ml 500 @ 500 mls/hr IV CONT .Q1H STA Rx#:[id number] Sodium Chloride 0.9% IV 500 ml 500 @ 500 mls/hr IV CONT .Q1H STA Rx#:[id number] Oral 0 Output: Urine 100 Patient Weight 12/11/23 23:59 Weight 79 kg
--- NOTE | 2023-12-11 14:09 | PM.IMPN ---
Progress Note: A&P Assessment and Plan (1) UTI (urinary tract infection): Code(s): N39.0 - Urinary tract infection, site not specified Status: Acute Assessment and Plan: abnl ua, await uc treat for uti with iv rocephin (2) Dehydration: Code(s): E86.0 - Dehydration Status: Acute Assessment and Plan: hydrate with fluids bp appears corrected now check orthostatics in am (3) Sepsis: Code(s): A41.9 - Sepsis, unspecified organism Status: Acute Assessment and Plan: check serial lactic levels hydrate with fluids continue iv abx for uti likely source of infection (4) Benign essential hypertension: Code(s): I10 - Essential (primary) hypertension Status: Acute Assessment and Plan: continue blood pressure medications hold bp meds if sbp less than 100 (5) Status post insertion of drug-eluting stent into left anterior descending (LAD) artery for coronary artery disease: Code(s): Z95.5 - Presence of coronary angioplasty implant and graft Status: Acute Assessment and Plan: continue medications for cad known pt for Dr Mcgregor pt had recent pacemaker Plan Sepsis likely from UTI Continue IV fluid, the levofloxacin Monitor for urine cultures. UTI Continue level of care. hyponatremia Likely from dehydration and poor oral intake Continue IV fluids Sodium 126, monitor. Encourage oral intake. hyperglycemia - order hbaic to rule out dm raised lfts - ? fatty liver or statin related mildly elevated trop likely demand Resolved., monitor. dvt prop -subQ heparin code - pt remains full code Subjective Date/time seen: 12/11/23 14:09 Interval history: Patient comfortable at bedside noted he feels much better today and hungry which he has not felt in 2 weeks Review of Systems Review of Systems: pt feeling lousy low bps low appetite no other complaints all other 12 systems reviewed with pt Exam Narrative: General: alert and comfortable Eyes: EOMI, PERRLA ENNT External ears normal, Neck is supple, no masses, Respiratory systems: Clear to auscultation Cardiovascular S1, S2, normal rhythm, no murmur, rub, or gallop; no thrill or palpable murmurs on palpation. Gastrointestinal: soft, non-tender, and non-distended abdomen with no masses; BS present Skin: no rash, lesions, ulcerations, subcutaneous nodules or induration Musculoskeletal: no abnormality and no tenderness, normal ROM Neurologic: Alert and oriented x3, non focal Mental Status Exam: normal affect Objective Data Vital Signs Vital Signs: Vital Signs - 24 hr 12/10/23 16:01 12/10/23 21:59 12/10/23 21:13 Temperature 98.1 F Pulse Rate 102 H 87 Respiratory Rate 16 20 28 H Blood Pressure 97/80 L 116/62 Pulse Oximetry 95 96 98 Oxygen Delivery Room Air Room Air 12/10/23 21:16 12/10/23 22:16 12/10/23 22:31 Temperature Pulse Rate 87 82 81 Respiratory Rate 20 24 H 15 Blood Pressure 120/73 119/63 115/82 Pulse Oximetry 95 97 97 Oxygen Delivery 12/11/23 03:00 12/11/23 03:27 12/11/23 04:26 Temperature Pulse Rate 78 81 Respiratory Rate Blood Pressure 120/72 Pulse Oximetry 97 97 Oxygen Delivery Room Air 12/11/23 04:31 12/11/23 04:30 12/11/23 06:00 Temperature 97.2 F L Pulse Rate 86 76 Respiratory Rate 18 Blood Pressure 132/64 Pulse Oximetry 99 Oxygen Delivery Room Air 12/11/23 08:00 12/11/23 08:00 12/11/23 08:00 Temperature 98.4 F Pulse Rate 74 74 74 Respiratory Rate 14 14 Blood Pressure 114/56 L Pulse Oximetry 98 98 Oxygen Delivery Room Air 12/11/23 10:00 12/11/23 11:43 12/11/23 12:00 Temperature 97.6 F Pulse Rate 86 80 87 Respiratory Rate 16 Blood Pressure 121/65 Pulse Oximetry 98 Oxygen Delivery 12/11/23 12:00 12/11/23 14:00 Temperature Pulse Rate 80 80 Respiratory Rate 16 Blood Pressure Pulse Oximetry 98 Oxygen Delivery Room Air Intake/Output Intake/Output: Intake & Output 12/08/23 12/09/23 12/10/23 12/11/23 23:59 23:59 23:59 23:59 Intake Total 500 700 Output Total 100 Balance 500 600 Meds/Results Medications: Active Medications Generic Name Dose Route Start Last Admin Trade Name Freq PRN Reason Stop Dose Admin Aspirin 81 mg 12/11/23 08:00 12/11/23 08:53 Aspirin 81 Mg Chewable Tablet PO 81 mg DAILY@0800 GORGE Administration Doxycycline Hyclate 100 mg in 100 mls @ 100 mls/hr 12/11/23 15:00 Vibramycin 100 Mg/Ns 100 Ml IVPB Q12H GORGE Dextrose/Sodium Chloride 1,000 mls @ 70 mls/hr 12/11/23 03:00 12/11/23 04:40 Dextrose 5% Sodium Chloride 0.45% IV CONT 70 mls/hr .[id number] GORGE Administration Lisinopril 40 mg 12/11/23 09:00 Lisinopril 20 Mg Tablet PO QAM GORGE Lovastatin 40 mg 12/11/23 09:00 12/11/23 08:52 Lovastatin 20 Mg Tablet PO 40 mg QAM GORGE Administration Sildenafil Citrate 20 mg 12/11/23 09:00 Sildenafil Citrate 20 Mg Tablet PO TID GORGE Ticagrelor 90 mg 12/11/23 09:00 12/11/23 08:53 Ticagrelor 90 Mg Tablet PO 90 mg Q12HR GORGE Administration Radiology Results: ITS Impressions Chest X-Ray 12/10/23 17:25 IMPRESSION: 1. No acute cardiopulmonary disease. Labs Labs: Laboratory Results - last 24 hr 12/10/23 12/10/23 12/11/23 16:40 22:08 01:46 WBC 7.6 RBC 3.97 L Hgb 13.1 L Hct 35.8 L MCV 90.2 MCH 33.0 MCHC 36.6 H RDW 13.0 Plt Count 175 MPV 10.4 Immature Gran % (Auto) Not Reportable Neut % (Auto) Not Reportable Lymph % (Auto) Not Reportable [place] % (Auto) Not Reportable Eos % (Auto) Not Reportable Baso % (Auto) Not Reportable Lymph # (Auto) Not Reportable [place] # (Auto) Not Reportable Eos # (Auto) Not Reportable Baso # (Auto) Not Reportable Abs Immat Gran (auto) Not Reportable Absolute Neuts (auto) Not Reportable Absolute Nucleated RBC Not Reportable Total Counted 100 Neutrophils % (Manual) 86 H Band Neutrophils % 8 H Lymphocytes % (Manual) 2.0 L Monocytes % (Manual) 4 Nucleated RBC % Not Reportable Abs Neuts (Manual) 7.14 H Abs Lymphs (Manual) 0.15 L Abs Monocytes (Manual) 0.30 Platelet Estimate Adequate Schistocytes None seen PT 15.3 H INR 1.2 APTT 40.2 H Sodium 127 L 126 L Potassium 4.4 3.6 Chloride 92 L 95 L Carbon Dioxide 23 20 L Anion Gap 12 11 BUN 41 H D 47 H Creatinine 1.20 1.30 Estim Creat Clear Calc 47 43 Estimated GFR 59 54 L Glucose 146 H 110 Calcium 8.9 8.2 L Magnesium 2.1 Total Bilirubin 2.0 H AST 113 H ALT 73 H Alkaline Phosphatase 87 Troponin I 0.048 H* 0.038 H* NT-Pro-B Natriuret Pep 96222 H Total Protein 9.0 H Albumin 4.4 Lipase 92 113 Urine Color Urine Appearance Urine pH Ur Specific [place] Urine Protein Urine Glucose (UA) Urine Ketones Ur Blood (Man) Urine Nitrate Urine Bilirubin Urine Urobilinogen Add Ur Microanalysis Leukocyte Esterase Rfl Urine RBC Urine WBC Ur Squamous Epith Cells Urine Bacteria Urine Casts Hyaline Casts Urine Mucus Influenza A (RT-PCR) Negative Influenza B (RT-PCR) Negative RSV (RT-PCR) Negative SARS-CoV-2 RNA (RT-PCR) Negative 12/11/23 12/11/23 01:48 06:06 WBC RBC Hgb Hct MCV MCH MCHC RDW Plt Count MPV Immature Gran % (Auto) Neut % (Auto) Lymph % (Auto) [place] % (Auto) Eos % (Auto) Baso % (Auto) Lymph # (Auto) [place] # (Auto) Eos # (Auto) Baso # (Auto) Abs Immat Gran (auto) Absolute Neuts (auto) Absolute Nucleated RBC Total Counted Neutrophils % (Manual) Band Neutrophils % Lymphocytes % (Manual) Monocytes % (Manual) Nucleated RBC % Abs Neuts (Manual) Abs Lymphs (Manual) Abs Monocytes (Manual) Platelet Estimate Schistocytes PT INR APTT Sodium Potassium Chloride Carbon Dioxide Anion Gap BUN Creatinine Estim Creat Clear Calc Estimated GFR Glucose Calcium Magnesium Total Bilirubin AST ALT Alkaline Phosphatase Troponin I 0.034 NT-Pro-B Natriuret Pep Total Protein Albumin Lipase Urine Color Dark yellow Urine Appearance Clear Urine pH 5.5 Ur Specific [place] 1.024 Urine Protein 2+ H Urine Glucose (UA) Negative Urine Ketones Negative Ur Blood (Man) Negative Urine Nitrate Positive H Urine Bilirubin 1+ H Urine Urobilinogen 1.0 Add Ur Microanalysis Reviewed Leukocyte Esterase Rfl Trace H Urine RBC 0-2 Urine WBC 0-5 Ur Squamous Epith Cells None seen Urine Bacteria None seen Urine Casts 3-5 Hyaline Casts Present Urine Mucus Present Influenza A (RT-PCR) Influenza B (RT-PCR) RSV (RT-PCR) SARS-CoV-2 RNA (RT-PCR)
[2023-12-11] MEDS: levoFLOXacin 500 MG/D5W 100 ML 500 MG/100 ML BAG 100 MG IVPB (15:04)
[2023-12-11] MEDS: HEPARIN SODIUM 5,000 UNITS/ML VIAL 5000 UNITS SUB-Q (21:15)
[2023-12-12] VITALS (17 sets, daily range): BP systolic 132–150; BP diastolic 66–79; PULSE 73–85; RESP 18–20; TEMP 35.9–37.2; O2SAT 97–100
[2023-12-12] MEDS: DOXYCYCLINE 100 MG/NS 100 ML 100 MG/100 ML BAG IVPB ×2 (03:10→14:00)
[2023-12-12 04:03] LABS: Basophils Percent Auto 0.3 % (0.2-1.2); Eosinophils Percent Auto 0.6 % (0-4.4); Hematocrit 28.3 % (42.0-52.0); Hemoglobin 10.2 g/dL (14.0-18.0); Immature Granulocyte Absolute 0.01 K/mm3 (0.00-0.031); Immature Granulocyte Percent A 0.3 % (0-0.5); Lymphocytes Absolute Auto 0.55 K/mm3 (0.9-3.2); Lymphocytes Percent Auto 17.6 % (18.3-44.2); Mean Corpuscular Hemoglobin 32.3 pg (26-34); Mean Corpuscular Volume 89.6 fl (80-100); Mean Platelet Volume 10.8 fl (7.4-10.4); Monocytes Absolute Auto 0.4 K/mm3 (0.1-0.6); Monocytes Percent Auto 13.1 % (2.6-8.5); Neutrophils Absolute Auto 2.1 K/mm3 (1.3-6.7); Neutrophils Percent Auto 68.1 % (45.5-73.1); Platelet Count Result 146 k/mm3 (150-375); Red Blood Count 3.16 M/mm3 (4.6-6.20); Red Cell Distribution Width 12.8 % (11.5-14.5); White Blood Count 3.1 K/mm3 (4.5-10.0)
[2023-12-12 04:22] LABS: Alanine Aminotransferase 75 U/L (6-50); Albumin Level 3.2 g/dL (3.5-5.1); Alkaline Phosphatase 96 U/L (38-126); Anion Gap 8 mmol/L (4-12); Aspartate Amino Transferase 88 U/L (17-59); Blood Urea Nitrogen 25 mg/dL (9-20); Calcium 8.1 mg/dL (8.4-10.2); Carbon Dioxide 22 mmol/L (22-30); Chloride 97 mmol/L (98-107); Estimated CRCL calculation 68 ml/min; Estimated Glomerular Filt Rate > 60; Glucose 97 mg/dL (65-110); Potassium 3.2 mmol/L (3.4-5.0); Sodium 127 mmol/L (137-145)
[2023-12-12 04:32] LABS: Hemoglobin A1C 4.7 % (<5.7)
[2023-12-12] MEDS: HEPARIN SODIUM 5,000 UNITS/ML VIAL 5000 UNITS SUB-Q ×3 (06:10→20:39)
[2023-12-12] MEDS: TICAGRELOR 90 MG TABLET PO ×2 (08:31→20:39)
[2023-12-12] MEDS: ASPIRIN 81 MG CHEWABLE TABLET PO (08:31)
[2023-12-12] MEDS: LOVASTATIN 20 MG TABLET 40 MG PO (08:31)
[2023-12-12 08:39] LABS: Anion Gap 9 mmol/L (4-12); Blood Urea Nitrogen 22 mg/dL (9-20); Calcium 8.1 mg/dL (8.4-10.2); Carbon Dioxide 21 mmol/L (22-30); Chloride 97 mmol/L (98-107); Estimated CRCL calculation 77 ml/min; Estimated Glomerular Filt Rate > 60; Glucose 107 mg/dL (65-110); Lipase 145 U/L (23-300); Potassium 3.3 mmol/L (3.4-5.0); Sodium 127 mmol/L (137-145)
[2023-12-12 08:47] LABS: Hemoglobin A1C 4.8 % (<5.7)
[2023-12-12] MEDS: SODIUM CHLORIDE 500 MG TABLET 1000 MG PO ×2 (11:25→16:24)
[2023-12-12] MEDS: POTASSIUM CHLORIDE 20 MEQ ER TABLET 40 MEQ PO (11:25)
[2023-12-12 11:27] LABS: Sodium 129 mmol/L (137-145)
--- NOTE | 2023-12-12 12:41 | PM.IMPN ---
Progress Note: A&P Assessment and Plan (1) UTI (urinary tract infection): Code(s): N39.0 - Urinary tract infection, site not specified Status: Acute Assessment and Plan: abnl ua, await uc treat for uti with iv rocephin (2) Dehydration: Code(s): E86.0 - Dehydration Status: Acute Assessment and Plan: s/p IVF bp stable and wnl has reestablished full oral intake encourage oral intake (3) Sepsis: Code(s): A41.9 - Sepsis, unspecified organism Status: Acute Assessment and Plan: check serial lactic levels hydrate with fluids continue iv abx for uti likely source of infection (4) Benign essential hypertension: Code(s): I10 - Essential (primary) hypertension Status: Inactive Assessment and Plan: continue blood pressure medications hold bp meds if sbp less than 100 (5) Status post insertion of drug-eluting stent into left anterior descending (LAD) artery for coronary artery disease: Code(s): Z95.5 - Presence of coronary angioplasty implant and graft Status: Acute Assessment and Plan: continue medications for cad known pt for Dr Mcgregor pt had recent pacemaker Plan Sepsis likely from UTI culture still negative, monitor blood culture one more date Stopped IVF today and monitor vital signs stable and wnl continue Levaquin UTI Continue above care hyponatremia Likely from dehydration and poor oral intake hold IVF , continue PO sodium tablets Sodium 127, monitor. Encourage oral intake. FTT/Protein energy malnutrition, resolved Patient noted he has poor oral intake x 2 weeks but now has reestablished full oral intake monitor hyperglycemia -resolved not diabetic A1c 4.7 raised lfts - ? fatty liver or statin related improving mildly elevated trop likely demand Resolved., monitor. dvt prop -subQ heparin code - pt remains full code Subjective Date/time seen: 12/12/23 12:41 Interval history: Noted he continues to feel better appetite has returned and blood culture still negative preliminarily, urine culture negative Na 127 will monitor one more night off IVF Exam Narrative: General: alert and comfortable Eyes: EOMI, PERRLA ENNT External ears normal, Neck is supple, no masses, Respiratory systems: Clear to auscultation Cardiovascular S1, S2, normal rhythm, no murmur, rub, or gallop; no thrill or palpable murmurs on palpation. Gastrointestinal: soft, non-tender, and non-distended abdomen with no masses; BS present Skin: no rash, lesions, ulcerations, subcutaneous nodules or induration Musculoskeletal: no abnormality and no tenderness, normal ROM Neurologic: Alert and oriented x3, non focal Mental Status Exam: normal affect Const: General: overweight and thin (frail weak pale appearing man underweight ); No in distress Nutritional Appearance: overweight and thin (frail weak pale appearing man underweight ) Orientation/consciousness: oriented to person HENMT: Head: normal to inspection Resp: Effort & Inspection: no respiratory distress Auscultation: no rhonchi and no wheezes Cardio: Rate: regular rate Rhythm: regular rhythm Other: recent pacemaker GI: Inspection: normal to inspection Auscultation: normal bowel sounds Neuro: General: oriented to person Extrem: Other: no edema in peripheries Psych: Other: good mood calm pleasant oriented x3 Objective Data Vital Signs Vital Signs: Vital Signs - 24 hr 12/11/23 14:00 12/11/23 16:00 12/11/23 16:00 Temperature 98.3 F Pulse Rate 80 77 87 Respiratory Rate 16 Blood Pressure 128/68 Pulse Oximetry 96 Oxygen Delivery Fraction of Inspired Oxygen 12/11/23 16:00 12/11/23 17:03 12/11/23 19:59 Temperature 97.6 F Pulse Rate 87 81 80 Respiratory Rate 16 18 Blood Pressure 131/66 Pulse Oximetry 96 95 Oxygen Delivery Room Air Fraction of Inspired Oxygen 12/11/23 20:00 12/11/23 20:00 12/11/23 22:00 Temperature Pulse Rate 82 80 Respiratory Rate Blood Pressure Pulse Oximetry Oxygen Delivery Room Air Fraction of Inspired Oxygen 12/12/23 00:00 12/12/23 00:00 12/12/23 00:00 Temperature 98.8 F Pulse Rate 84 83 Respiratory Rate 18 Blood Pressure 140/66 Pulse Oximetry 98 Oxygen Delivery Room Air Fraction of Inspired Oxygen 12/12/23 02:00 12/12/23 03:29 12/12/23 04:00 Temperature Pulse Rate 85 78 Respiratory Rate Blood Pressure Pulse Oximetry Oxygen Delivery Room Air Fraction of Inspired Oxygen 12/12/23 04:00 12/12/23 05:55 12/12/23 07:52 Temperature 98.3 F 98.9 F Pulse Rate 82 78 84 Respiratory Rate 18 20 Blood Pressure 138/77 136/79 Pulse Oximetry 98 97 Oxygen Delivery Fraction of Inspired Oxygen 12/12/23 07:59 12/12/23 08:00 12/12/23 08:00 Temperature Pulse Rate 85 Respiratory Rate Blood Pressure Pulse Oximetry 97 Oxygen Delivery Room Air Room Air Fraction of Inspired Oxygen 21 12/12/23 10:00 12/12/23 11:08 Temperature 96.6 F L Pulse Rate 76 76 Respiratory Rate 20 Blood Pressure 132/73 Pulse Oximetry 99 Oxygen Delivery Fraction of Inspired Oxygen Intake/Output Intake/Output: Intake & Output 12/09/23 12/10/23 12/11/23 12/12/23 23:59 23:59 23:59 23:59 Intake Total 500 2400 780 Output Total 825 650 Balance 500 1575 130 Meds/Results Medications: Active Medications Generic Name Dose Route Start Last Admin Trade Name Patricioq PRN Reason Stop Dose Admin Aspirin 81 mg 12/11/23 08:00 12/12/23 08:31 Aspirin 81 Mg Chewable Tablet PO 81 mg DAILY@0800 [facility] Administration Heparin Sodium (Porcine) 5,000 units 12/11/23 22:00 12/12/23 06:10 Heparin Sodium 5,000 Units/Ml Vial SUB-Q 5,000 units Q8HR [facility] Administration Doxycycline Hyclate 100 mg in 100 mls @ 100 mls/hr 12/11/23 15:00 12/12/23 07:00 Vibramycin 100 Mg/Ns 100 Ml IVPB Infused Q12H [facility] Infusion Levofloxacin/Dextrose 250 mg in 50 mls @ 50 mls/hr 12/12/23 15:00 Levaquin 250 Mg/D5w 50 Ml IVPB Q24H [facility] Lisinopril 40 mg 12/11/23 09:00 Lisinopril 20 Mg Tablet PO QAM [facility] Lovastatin 40 mg 12/11/23 09:00 12/12/23 08:31 Lovastatin 20 Mg Tablet PO 40 mg QAM [facility] Administration Sildenafil Citrate 20 mg 12/11/23 09:00 Sildenafil Citrate 20 Mg Tablet PO TID [facility] Sodium Chloride 1,000 mg 12/12/23 13:00 12/12/23 11:25 Sodium Chloride 500 Mg Tablet PO 1,000 mg TID [facility] Administration Ticagrelor 90 mg 12/11/23 09:00 12/12/23 08:31 Ticagrelor 90 Mg Tablet PO 90 mg Q12HR [facility] Administration Radiology Results: ITS Impressions Chest X-Ray 12/10/23 17:25 IMPRESSION: 1. No acute cardiopulmonary disease. Labs Labs: Laboratory Results - last 24 hr 12/12/23 12/12/23 12/12/23 03:41 08:01 11:09 WBC 3.1 L RBC 3.16 L Hgb 10.2 L Hct 28.3 L MCV 89.6 MCH 32.3 MCHC 36.0 RDW 12.8 Plt Count 146 L MPV 10.8 H Immature Gran % (Auto) 0.3 Neut % (Auto) 68.1 Lymph % (Auto) 17.6 L [place] % (Auto) 13.1 H Eos % (Auto) 0.6 Baso % (Auto) 0.3 Lymph # (Auto) 0.55 L [place] # (Auto) 0.4 Eos # (Auto) 0.0 Baso # (Auto) 0.0 Abs Immat Gran (auto) 0.01 Absolute Neuts (auto) 2.1 Absolute Nucleated RBC 0.000 Nucleated RBC % 0.0 Sodium 127 L 127 L 129 L Potassium 3.2 L 3.3 L Chloride 97 L 97 L Carbon Dioxide 22 21 L Anion Gap 8 9 BUN 25 H D 22 H Creatinine 0.80 0.70 Estim Creat Clear Calc 68 77 Estimated GFR > 60 > 60 Glucose 97 107 Hemoglobin A1c 4.7 4.8 Calcium 8.1 L 8.1 L Magnesium 2.0 Total Bilirubin 1.0 AST 88 H ALT 75 H Alkaline Phosphatase 96 Total Protein 7.0 Albumin 3.2 L Lipase 145
[2023-12-12] MEDS: levoFLOXacin 250 MG/D5W 50 ML 250 MG/50 ML BAG 50 MG IVPB (14:00)
[2023-12-13] VITALS (9 sets, daily range): BP systolic 132–143; BP diastolic 65–69; PULSE 69–82; RESP 18; TEMP 36.5–36.7; O2SAT 96–99
[2023-12-13] MEDS: DOXYCYCLINE 100 MG/NS 100 ML 100 MG/100 ML BAG IVPB (03:12)
[2023-12-13 05:10] LABS: Basophils Percent Auto 0.6 % (0.2-1.2); Eosinophils Absolute Auto 0.1 K/mm3 (0-0.3); Eosinophils Percent Auto 1.4 % (0-4.4); Hematocrit 29.2 % (42.0-52.0); Hemoglobin 10.4 g/dL (14.0-18.0); Immature Granulocyte Absolute 0.02 K/mm3 (0.00-0.031); Immature Granulocyte Percent A 0.6 % (0-0.5); Lymphocytes Absolute Auto 0.85 K/mm3 (0.9-3.2); Lymphocytes Percent Auto 24.1 % (18.3-44.2); Mean Corpuscular HGB Conc 35.6 g/dl (32-36); Mean Corpuscular Hemoglobin 32.1 pg (26-34); Mean Corpuscular Volume 90.1 fl (80-100); Mean Platelet Volume 10.9 fl (7.4-10.4); Monocytes Absolute Auto 0.4 K/mm3 (0.1-0.6); Monocytes Percent Auto 12.2 % (2.6-8.5); Neutrophils Absolute Auto 2.2 K/mm3 (1.3-6.7); Neutrophils Percent Auto 61.1 % (45.5-73.1); Platelet Count Result 157 k/mm3 (150-375); Red Blood Count 3.24 M/mm3 (4.6-6.20); Red Cell Distribution Width 12.7 % (11.5-14.5); White Blood Count 3.5 K/mm3 (4.5-10.0)
[2023-12-13 05:27] LABS: Alanine Aminotransferase 67 U/L (6-50); Albumin Level 3.2 g/dL (3.5-5.1); Alkaline Phosphatase 93 U/L (38-126); Anion Gap 7 mmol/L (4-12); Aspartate Amino Transferase 63 U/L (17-59); Bilirubin,Total 0.8 mg/dL (0.2-1.3); Blood Urea Nitrogen 14 mg/dL (9-20); Calcium 8.4 mg/dL (8.4-10.2); Carbon Dioxide 25 mmol/L (22-30); Chloride 99 mmol/L (98-107); Estimated CRCL calculation 68 ml/min; Estimated Glomerular Filt Rate > 60; Glucose 94 mg/dL (65-110); Magnesium 1.8 mg/dL (1.6-2.3); Potassium 3.8 mmol/L (3.4-5.0); Sodium 131 mmol/L (137-145)
[2023-12-13] MEDS: HEPARIN SODIUM 5,000 UNITS/ML VIAL 5000 UNITS SUB-Q (05:52)
[2023-12-13] MEDS: SODIUM CHLORIDE 500 MG TABLET 1000 MG PO (09:05)
[2023-12-13] MEDS: TICAGRELOR 90 MG TABLET PO (09:05)
[2023-12-13] MEDS: LOVASTATIN 20 MG TABLET 40 MG PO (09:05)
[2023-12-13] MEDS: ASPIRIN 81 MG CHEWABLE TABLET PO (09:06)
--- NOTE | 2023-12-13 11:00 | PM.DS ---
DS: Admitting Diagnosis Discharge Date 12/13/23 Admitting Diagnosis UTi DS: Discharge Diagnosis Discharge Diagnosis (1) Sepsis: Code(s): A41.9 - Sepsis, unspecified organism Status: Acute DS: Summary Hospital Course Hospital Course: 78year old male, pt history of heart disease and recent pacemaker @2 weeks ago has been feeling lousy for 3-4 days. Pt has been weak not eating [facility] but was sent home the next day pt unsure of what he had there. Pt denies vomiting or diarrhea or fever bp have been low on admission. so far trop mildly elevated cxr is nl and cultures are pending Pt admitted for sepsis, UTI and dehydration. Elevated troponin likely related to urine infection. Patient was managed for sepsis with levaquin, however urine culture negative, blood culture still negative till date and vital signs stable and wnl. Patient is not eating and sodium is markedly improved. Patient discharged on 4 more days of Levaquin and 7 days of sodium chloride tablets F/u with PCP in 3-5 days Assessment and Plan (1) UTI (urinary tract infection): Code(s): N39.0 - Urinary tract infection, site not specified Status: Acute Assessment and Plan: abnl ua, await uc treat for uti with iv rocephin (2) Dehydration: Code(s): E86.0 - Dehydration Status: Acute Assessment and Plan: s/p IVF bp stable and wnl has reestablished full oral intake encourage oral intake (3) Sepsis: Code(s): A41.9 - Sepsis, unspecified organism Status: Acute Assessment and Plan: check serial lactic levels hydrate with fluids continue iv abx for uti likely source of infection (4) Benign essential hypertension: Code(s): I10 - Essential (primary) hypertension Status: Inactive Assessment and Plan: continue blood pressure medications hold bp meds if sbp less than 100 (5) Status post insertion of drug-eluting stent into left anterior descending (LAD) artery for coronary artery disease: Code(s): Z95.5 - Presence of coronary angioplasty implant and graft Status: Acute Assessment and Plan: continue medications for cad known pt for Dr Mcgregor pt had recent pacemaker Plan Sepsis likely from UTI urine culture negative Blood culture still negative, however vital signs stable and wnl, patient noted he feels really great discharged on 4 more days of Levaquin UTI Continue above care hyponatremia, resolving Likely from dehydration and poor oral intake s/p IVF, Na 131 today discharged on Sodium tablets x 7 days Continue follow up with PCP in 3-5 days oral intake is adequate FTT/Protein energy malnutrition, resolved Patient noted he has poor oral intake x 2 weeks but now has reestablished full oral intake monitor hyperglycemia -resolved not diabetic A1c 4.7 raised lfts - ? fatty liver or statin related improving mildly elevated trop likely demand Resolved., monitor. F/u with PCP in 3-5days Time Spent with Patient Time attestation: Total time spent providing and/or coordinating discharge services: DS: Data Data Completed and Pending Labs on day of discharge: Labs from last 24 hours 12/13/23 12/12/23 04:52 11:09 WBC 3.5 L RBC 3.24 L Hgb 10.4 L Hct 29.2 L MCV 90.1 MCH 32.1 MCHC 35.6 RDW 12.7 Plt Count 157 MPV 10.9 H Immature Gran % (Auto) 0.6 H Neut % (Auto) 61.1 Lymph % (Auto) 24.1 [place] % (Auto) 12.2 H Eos % (Auto) 1.4 Baso % (Auto) 0.6 Lymph # (Auto) 0.85 L [place] # (Auto) 0.4 Eos # (Auto) 0.1 Baso # (Auto) 0.0 Abs Immat Gran (auto) 0.02 Absolute Neuts (auto) 2.2 Absolute Nucleated RBC 0.000 Nucleated RBC % 0.0 Sodium 131 L 129 L Potassium 3.8 Chloride 99 Carbon Dioxide 25 Anion Gap 7 BUN 14 D Creatinine 0.80 Estim Creat Clear Calc 68 Estimated GFR > 60 Glucose 94 Calcium 8.4 Magnesium 1.8 Total Bilirubin 0.8 AST 63 H ALT 67 H Alkaline Phosphatase 93 Total Protein 7.0 Albumin 3.2 L Preliminary micro results at discharge 12/11/23 00:32 Blood Culture - Preliminary Blood 12/11/23 00:32 Blood Culture - Preliminary Blood Discharge Plan Discharge Attending physician on discharge: Maura Ledbetter Consulting providers: Dania Young Discharging Clinician: Maura Ledbetter Anticipated Discharge Date/Time: 12/13/23 10:54 Patient Disposition: Home, Self-Care Activity: as tolerated Diet: as tolerated Patient Instructions: Antibiotic Form Stand Alone Forms: General Discharge Information Follow-up/Referrals: Darryl Moran, [Primary Care Provider] - (F/u with PCP in 3-5 days ) Discharge Medications: New levofloxacin 250 mg tablet 250 mg PO Q24H 4 Days Qty: 4 0RF sodium chloride 1,000 mg tablet,soluble 1,000 mg PO DAILY Qty: 7 0RF Continued aspirin [Adult Aspirin Regimen] 81 mg tablet,delayed release (DR/EC) 81 mg PO DAILY ticagrelor 90 mg tablet 90 mg PO Q12H hydralazine 25 mg tablet 25 mg PO DAILY carvedilol 3.125 mg tablet 3.125 mg PO BID sildenafil (pulm.hypertension) 20 mg tablet 20 mg PO TID PRN (Reason: Sexual Activity) Rx Instructions: take 30 min prior to sexual activity lisinopril 10 mg tablet 10 mg PO DAILY Qty: 90 1RF lovastatin 40 mg tablet 40 mg PO QPM Qty: 90 1RF Rx Instructions: due for an appointment. last refill until seen. Date of admission: 12/12/23 12:53 Primary Care Provider: Darryl Moran Admitting Provider: Suellen Bennett Attending physician on admission: Suellen Bennett Condition: Stable
== END 2023-12-13 12:29 | disposition home or self-care (01) | DRG 690 ==
LOC: ANHED 21:04 → ANHIMU 12-11 03:14
PROVIDERS: Physician Assistant; Admitting Provider Family Medicine; Emergency Provider Registered Nurse; PCP Family Medicine; Visit Provider Internal Medicine
DX: N39.0 Urinary tract infection, site not specified (principal); I50.22 Chronic systolic (congestive) heart failure; E87.1 Hypo-osmolality and hyponatremia; E86.0 Dehydration; I11.0 Hypertensive heart disease with heart failure; I25.10 Atherosclerotic heart disease of native coronary artery without angina pectoris; E78.5 Hyperlipidemia, unspecified; R73.9 Hyperglycemia, unspecified; Z20.822 Contact with and (suspected) exposure to COVID-19; Z95.0 Presence of cardiac pacemaker; Z79.82 Long term (current) use of aspirin; Z87.891 Personal history of nicotine dependence; Z95.5 Presence of coronary angioplasty implant and graft
CPT/HCPCS: 36415; 71046; 80048; 80053; 81001; 83036; 83690; 83735; 83880; 84295; 84484; 85025; 85610; 85730; 87040; 87086; 87637; 93005; 96361; 96365; 96366; 99285; A9270; G0378; J1644; J1956; J7030; J7040

== ENCOUNTER 2023-12-14 13:32 | Observation (INO) | payer OTHER, SELFPAY ==
[2023-12-14] VITALS (11 sets, daily range): BP systolic 113–148; BP diastolic 47–70; PULSE 63–105; RESP 16–20; TEMP 36.4–38.1; O2SAT 96–100
--- NOTE | ~2023-12-14 | XR_ITS ---
EXAMINATION: XR chest 2V DATE: 12/14/2023 14:19 INDICATION: Near syncope. TECHNIQUE: Frontal and lateral views of the chest were obtained. COMPARISON: Chest 2 views 12/10/2023, chest CT 03/10/2022 FINDINGS: There is no pneumonia, pleural effusion, or pneumothorax. The heart size is normal. There i s a left chest wall pacer with leads in the right atrium and right ventricle. IMPRESSION: 1. Cardiomegaly. Reviewed, dictated and finalized at location A. IMPRESSION: 1. Cardiomegaly.
--- NOTE | ~2023-12-14 | US_ITS ---
Limited Abdominal Sonogram: Real-time sonographic imaging of the right upper quadrant was performed. Clinical History: Abnormal LFTs Findings: The liver appears normal with no evidence of mass lesion or bile duct dilatation. Main por patsy vein demonstrates normal direction of flow. The gallbladder is well distended, and appears normal with no evidence of gallstone or wall thickening. The common bile duct measures 3 mm. The visualize d pancreas, aorta, and IVC are unremarkable. Impression: No significant abnormality seen. Reviewed, dictated and finalized at location M. Impression: No significant abnormality seen.
--- NOTE | 2023-12-14 13:41 | ECG_ITS ---
Test Date: 2023-12-14 14:24:00 Measurements Intervals [place] Rate: 74 P: 51 [place]: 174 QRS: -64 QRSD: 205 T: 79 QT: 497 QTc: 554 Interpretive Statements ATRIAL SENSE- ELECTRONIC VENTRICULAR PACEMAKER NO FURTHER INTERPRETATION IS POSSIBLE ATYPICAL ECG Compared to ECG 12/10/2023 16:11:24 NO SIGNIFICANT CHANGE Electronically Signed On 12-14-2023 14:52:27 CDT by Miguel Angel Joe D.O.
[2023-12-14 14:34] LABS: Basophils Percent Auto 0.3 % (0.2-1.2); Eosinophils Percent Auto 0.8 % (0-4.4); Hematocrit 28.4 % (42.0-52.0); Hemoglobin 10.1 g/dL (14.0-18.0); Immature Granulocyte Absolute 0.02 K/mm3 (0.00-0.031); Immature Granulocyte Percent A 0.5 % (0-0.5); Lymphocytes Absolute Auto 0.28 K/mm3 (0.9-3.2); Lymphocytes Percent Auto 7.2 % (18.3-44.2); Mean Corpuscular HGB Conc 35.6 g/dl (32-36); Mean Corpuscular Hemoglobin 32.3 pg (26-34); Mean Corpuscular Volume 90.7 fl (80-100); Mean Platelet Volume 10.4 fl (7.4-10.4); Monocytes Absolute Auto 0.2 K/mm3 (0.1-0.6); Monocytes Percent Auto 4.6 % (2.6-8.5); Neutrophils Absolute Auto 3.4 K/mm3 (1.3-6.7); Neutrophils Percent Auto 86.6 % (45.5-73.1); Platelet Count Result 179 k/mm3 (150-375); Red Blood Count 3.13 M/mm3 (4.6-6.20); White Blood Count 3.9 K/mm3 (4.5-10.0)
[2023-12-14 14:46] LABS: Alanine Aminotransferase 132 U/L (6-50); Albumin Level 3.3 g/dL (3.5-5.1); Alkaline Phosphatase 166 U/L (38-126); Anion Gap 8 mmol/L (4-12); Aspartate Amino Transferase 121 U/L (17-59); Bilirubin,Total 1.2 mg/dL (0.2-1.3); Blood Urea Nitrogen 14 mg/dL (9-20); Calcium 8.2 mg/dL (8.4-10.2); Carbon Dioxide 24 mmol/L (22-30); Chloride 100 mmol/L (98-107); Estimated CRCL calculation 61 ml/min; Estimated Glomerular Filt Rate > 60; Glucose 114 mg/dL (65-110); Potassium 3.3 mmol/L (3.4-5.0); Sodium 132 mmol/L (137-145)
[2023-12-14 17:42] LABS: Lipase 126 U/L (23-300); Magnesium 1.8 mg/dL (1.6-2.3)
--- NOTE | 2023-12-14 17:54 | ED.GENADULT ---
HPI - General Adult General Chief complaint: Syncope Stated complaint: Syncope Time Seen by Provider: 12/14/23 16:04 History of Present Illness HPI narrative: Patient 78-year-old gentleman who presents emergency department with chief complaint of syncope. Patient was discharged from the hospital yesterday the patient reports that he was sitting at the kitchen table and writing a check and then had a syncopal episode the patient reports he got diaphoretic felt as though he is going to pass out and then slumped over the patient reports he does feels tired now reports that he was treated for a urinary tract infection Related Data Home Medications Medication Instructions Recorded Confirmed aspirin 81 mg tablet,delayed 81 mg PO DAILY 05/11/23 12/11/23 release (Adult Aspirin Regimen) ticagrelor 90 mg tablet 90 mg PO Q12H 05/11/23 12/11/23 carvedilol 3.125 mg tablet 3.125 mg PO BID 12/11/23 12/11/23 hydralazine 25 mg tablet 25 mg PO DAILY 12/11/23 12/11/23 sildenafil (pulm.hypertension) 20 20 mg PO TID PRN Sexual Activity 12/11/23 12/11/23 mg tablet Allergies Allergy/AdvReac Type Severity Reaction Status Date / Time Penicillins Allergy Mild rash Verified 12/11/23 04:28 Review of Systems Review of Systems: A 10 system review of systems was completed on the patient and is negative except for what is stated in the HPI. Nursing and ancillary documentation was reviewed. [facility] Past Medical History Medical History Benign essential hypertension Chronic heart failure with reduced ejection fraction (HFrEF, <= 40%) Coronary artery disease Hyperlipidemia Pacemaker Family History Family History Sibling Family history of migraine headaches Family history of type 2 diabetes mellitus Mother Family history of malignant neoplasm Patient's mother is Father Patient's father is , Onset Age: 73 Social History Social History Smoking packs per day: 2 Smoking cigarettes per day: 40.0 Years smoked: 50 Smoking pack-years: 100.00 Smoking status: Former smoker Tobacco type: cigarettes Second hand tobacco smoke exposure: No Smoking end date: 01/13/17 Alcohol intake: current Drinks per week: 12 Alcohol use details: beer Substance use: current Substance use type: does not use Last use: 2017 Do You Feel Safe in your Home?: Yes Lack of Transportation: No Lack of Food: Never True Current Housing: I Have Housing Concerned About Future Housing: No Difficulty Paying Gas/Electric Bills: No Difficulty Paying for Meds: No Currently Unemployed: No Education: Decline to Answer Difficulty w/ Childcare or Family Care: No Living arrangements: alone Spiritual care concerns: No Exam Narrative: GENERAL: Well-appearing, well-nourished, and in no acute distress. HEAD: Normocephalic, atraumatic. EYES: PERRLA and EOMI. ENT: Nares clear, no rhinorrhea or epistaxis. Mucous membranes moist. NECK: Supple. CHEST: Clear to auscultation. No respiratory distress. HEART: Regular rate and rhythm. No murmur heard. Normal peripheral pulses. ABDOMEN: Soft, nontender, nondistended, normal active bowel sounds. EXTREMITIES: Normal range of motion. No edema. SKIN: Warm, dry, no rash. NEURO: No focal deficits. Alert and oriented x3. PSYCH: Normal mood and affect. Course Vital Signs Vital signs: Vital Signs Temperature 36.4 C 12/14/23 13:42 Pulse Rate 64 12/14/23 13:42 Respiratory Rate 16 12/14/23 13:42 Blood Pressure 113/47 L 12/14/23 13:42 Pulse Oximetry 98 12/14/23 13:42 Oxygen Delivery Room Air 12/14/23 13:42 Temperature 36.4 C 12/14/23 13:42 Pulse Rate 73 12/14/23 15:57 Respiratory Rate 18 12/14/23 15:57 Blood Pressure 125/56
[2023-12-14 18:05] LABS: Add Urine Microscopic? NO; Appearance Urine Clear (Clear); Bilirubin Urine Negative (Negative); Blood Urine Negative (Negative); Color Urine Yellow (Yellow); Glucose Urine UA Negative (Negative); Ketones Urine Negative (Negative); Leukocyte Esterase Ur Negative LEU/UL (Negative); Nitrate Urine Negative (Negative); Protein Urine Negative (Negative); Specific Grav Ur 1.012 (1.001-1.035); pH Urine 6.5 (5.0-9.0)
[2023-12-14 18:12] LABS: Lactic Acid Reflex 1.1 mmol/L (0.7-2.0)
[2023-12-14] MEDS: SODIUM CHLORIDE 0.9% IV 1,000 ML 75 ML IV CONT (18:29)
[2023-12-14 18:38] LABS: Procalcitonin 0.4 ng/mL
[2023-12-14 18:40] LABS: Influenza A QL RT-PCR Negative (Negative); Influenza B QL RT-PCR Negative (Negative); RSV RNA, RT-PCR Negative (Negative); SARS-CoV-2 RNA PCR Negative (Negative)
[2023-12-14] MEDS: ACETAMINOPHEN 325 MG TABLET 650 MG PO (18:41)
--- NOTE | 2023-12-14 19:15 | ADMGEN ---
This patient, Henry Bearden, was admitted to Medical Room 256-. Patient/family oriented to hospital policies and general routines including ID bracelet, bed and alarms, visiting hours, pain management, procedures, bathroom and other care routines, personal items, smoking policy, room service/diet, and visiting hours. Information on how to activate the Rapid Response Team has been discussed. Patient/Family are encouraged to report perceived risks to care and to ask questions if they do not understand what they are told or what they should do.
--- NOTE | 2023-12-14 19:20 | PM.IMHP ---
H&P: HPI History of Present Illness Date/Time: 12/14/23 19:20 Chief Complaint: Syncope. Narrative: This is a pleasant 78-year-old male with heart failure with reduced ejection fraction, coronary artery disease with history of stent to the LAD and RCA, hypertension, hyperlipidemia, complete heart block status post permanent pacemaker insertion, hypertension, and hyperlipidemia who presented to the emergency department via EMS for evaluation after a syncopal episode. The patient and his family members provide the following history. He was recently admitted to the hospital through the emergency department on 12/10/2023 after presenting with complaints of generalized weakness for several months. He was admitted with dehydration and sepsis picture presumed to be related to urinary tract infection however urine culture demonstrated no growth and blood cultures have been negative today. Nonetheless he was discharged home on levofloxacin. He felt tired but otherwise okay on discharge. This afternoon he was sitting at the kitchen table eating lunch and riding out checks when he suddenly felt weak and lightheaded as though he was going to pass out. He then slumped over in the chair and was briefly unresponsive. On EMS arrival he was cool, pale, and diaphoretic with a blood pressure of 82/50. He was administered 200 mL bolus of normal saline and brought to the ED.. He denies focal weakness, paresthesias, fever, cold and flu symptoms, chest pain, pleuritic pain, palpitations, abdominal pain, nausea, vomiting, diarrhea, dysuria, lower extremity edema, and calf pain. In the ED: Blood pressure was 113/47 on arrival. Temperature has been as high as 100.6? F. the remainder of his vital signs have been stable. Labs are significant for WBC count of 3.9, hemoglobin 10.1, sodium 132, potassium 3.3, lactic acid 1.1, AST 121, ALT 132, alkaline phosphatase 166, total bili I 0.2, troponin 0.020, procalcitonin 0.4. Urinalysis was unremarkable. He tested negative for influenza, RSV, and COVID. Chest x-ray showed cardiomegaly. He is being admitted in this setting for further evaluation. Review of Systems Review of Systems: 12 systems were reviewed and are negative except for as per HPI. [facility] Past Medical History Medical History (Updated 12/14/23 @ 21:53 by Kathya G Gerling, PA-C) Chronic heart failure with reduced ejection fraction (HFrEF, <= 40%) Coronary artery disease Hyperlipidemia Hypertension Surgical History Surgical History (Updated 12/14/23 @ 21:44 by Kathya Stevens PA-C) History of cardiac catheterization Stents to the LAD and RCA. History of coronary artery stent placement History of permanent cardiac pacemaker placement For complete heart block. Family History Family History Sibling Family history of migraine headaches Family history of type 2 diabetes mellitus Mother Family history of malignant neoplasm Patient's mother is Father Patient's father is , Onset Age: 73 Social History Social History (Updated 12/14/23 @ 21:48 by Kathya Stevens PA-C) Social History: Surrogate medical decision maker: Dequan Bearden, son. Code status: Full code. Smoking packs per day: 2 Smoking cigarettes per day: 40.0 Years smoked: 50 Smoking pack-years: 100.00 Smoking status: Former smoker Tobacco type: cigarettes Second hand tobacco smoke exposure: No Smoking end date: 01/13/17 Alcohol intake: current Drinks per week: 12 Alcohol use details: beer Substance use: never Substance use type: does not use Do You Feel Safe in your Home?: Yes Lack of Transportation: No Lack of Food: Never True Current Housing: I Have Housing Concerned About Future Housing: No Difficulty Paying Gas/Electric Bills: No Difficulty Paying for Meds: No Currently Unemployed: No Education: Decline to Answer Difficulty w/ Childcare
[2023-12-14 22:18] LABS: Immature Reticulocyte Fraction 10.6 % (3.0-15.9); Reticulocyte Hemoglobin Conten 33.3 pg (28.2-36.6); Reticulocyte Percent 0.72 % (0.7-4.3); Reticulocytes Absolute 0.02 10^6/uL (0.02-0.10)
[2023-12-14 22:20] LABS: Creatine Kinase 30 U/L (55-170)
[2023-12-14] MEDS: POTASSIUM CHLORIDE 20 MEQ ER TABLET PO (22:23)
[2023-12-14] MEDS: TICAGRELOR 90 MG TABLET PO (22:23)
[2023-12-14 22:24] LABS: Iron 43 ug/dL (49-181)
[2023-12-14 22:34] LABS: Percent Iron Saturation 18 % (20-50)
[2023-12-14 22:56] LABS: Hepatitis B Surface Antigen Negative (Negative)
[2023-12-14 23:02] LABS: HAV RESULT Negative (Negative); Hepatitis B Core IgM Result Negative (Negative)
[2023-12-14 23:14] LABS: Hepatitis C Virus Antibody Negative (Negative)
[2023-12-14 23:28] LABS: Folic Acid 7.5 ng/mL (2.76->20)
[2023-12-15] VITALS (15 sets, daily range): BP systolic 117–154; BP diastolic 60–91; PULSE 60–97; RESP 18–20; TEMP 36.4–36.7; O2SAT 96–100
--- NOTE | 2023-12-15 | ECHO_ITS ---
Patient Info Name: Henry Bearden Age: 78 years : 1945 Gender: Male Ht: 69 in Wt: 174 lbs BSA: 1.97 m2 HR: 63 bpm BP: 131 / 63 mmHg Heart Rhythm: Paced Technical Quality: Good Exam Date: 12/15/2023 9:26 AM Exam Location: Echo Lab Patient Status: Inpatient Admit Date: 12/14/2023 Staff Ordering Physician: Carlos Nunez MD Senior Sales Manager: Lazaro Torres RDCS Attending Provider: Anatoly Ruiz MD Exam Type: CA echo doppler color flow Study Info Indications - syncope Complete two-dimensional, color flow and Doppler transthoracic echocardiogram is performed. Summary 1. Left ventricular chamber dimension is moderately enlarged. 2. Left ventricular systolic function is moderately reduced, estimated at 35-40%. 3. There is moderately increased left ventricular wall thickness. 4. The left ventricular diastolic function is grade I diastolic dysfunction. 5. Right ventricular systolic function is normal. 6. Left atrial chamber dimension is moderately enlarged. 7. Right atrial chamber dimension is mildly enlarged. 8. There is mild aortic valve regurgitation. 9. The mitral valve has thickened leaflets. 10. The mitral valve annulus is mildly calcified. 11. There is at least moderate mitral valve regurgitation. Severity of regurgitation may be underestimated due to eccentricity of the jet. 12. There is mild tricuspid valve regurgitation. Left Ventricle Left ventricular chamber dimension is moderately enlarged. Left ventricular systolic function is moderately reduced, estimated at 35-40%. There is moderately increased left ventricular wall thickness. Left ventricular septal wall motion is abnormal with septal motion related to pacing. The left ventricular diastolic function is grade I diastolic dysfunction. Right Ventricle Linear artifact in right ventricle suggestive of catheter(s), pacemaker lead(s), or ICD lead(s). Right ventricular chamber dimension is normal. Right ventricular systolic function is normal. Left Atria Left atrial chamber dimension is moderately enlarged. Right Atria Linear artifact in the right atrium suggestive of catheter(s), pacemaker lead(s), or ICD lead(s). Right atrial chamber dimension is mildly enlarged. Atrial Septum Intact interatrial septum visualized by color flow imaging. Aortic Valve The aortic valve is not well visualized. There is no aortic valve stenosis. There is mild aortic valve regurgitation. There is mild aortic valve calcification. Pulmonic Valve The pulmonic valve is not well visualized. There is trace pulmonic regurgitation. Mitral Valve The mitral valve has thickened leaflets. There is at least moderate mitral valve regurgitation. Severity of regurgitation may be underestimated due to eccentricity of the jet. The mitral valve annulus is mildly calcified. Tricuspid Valve There is mild tricuspid valve regurgitation. Pericardium/Pleural There is no pericardial effusion. Inferior Vena Cava Dilated inferior vena cava with <50% collapse upon inspiration consistent with elevated right atrial pressure, 15 mmHg. Aorta The aortic root size at the sinus of Valsalva is normal. Left Ventricular Outflow Tract Name Value Normal LVOT 2D LVOT Diameter 1.9 cm LVOT Doppler
[2023-12-15 05:16] LABS: Hematocrit 28.3 % (42.0-52.0); Hemoglobin 9.7 g/dL (14.0-18.0); Mean Corpuscular HGB Conc 34.3 g/dl (32-36); Mean Corpuscular Hemoglobin 31.4 pg (26-34); Mean Corpuscular Volume 91.6 fl (80-100); Mean Platelet Volume 10.5 fl (7.4-10.4); Platelet Count Result 176 k/mm3 (150-375); Red Blood Count 3.09 M/mm3 (4.6-6.20); Red Cell Distribution Width 12.8 % (11.5-14.5); White Blood Count 4.3 K/mm3 (4.5-10.0)
[2023-12-15 05:35] LABS: Alanine Aminotransferase 188 U/L (6-50); Albumin Level 3.3 g/dL (3.5-5.1); Alkaline Phosphatase 200 U/L (38-126); Anion Gap 7 mmol/L (4-12); Aspartate Amino Transferase 168 U/L (17-59); Bilirubin,Total 1.4 mg/dL (0.2-1.3); Blood Urea Nitrogen 12 mg/dL (9-20); Calcium 8.4 mg/dL (8.4-10.2); Carbon Dioxide 24 mmol/L (22-30); Chloride 101 mmol/L (98-107); Estimated CRCL calculation 68 ml/min; Estimated Glomerular Filt Rate > 60; Glucose 96 mg/dL (65-110); Lipase 114 U/L (23-300); Magnesium 1.8 mg/dL (1.6-2.3); Potassium 3.5 mmol/L (3.4-5.0); Sodium 132 mmol/L (137-145)
--- NOTE | 2023-12-15 08:20 | PM.IMPN ---
Progress Note: A&P Assessment and Plan (1) Syncope: Code(s): R55 - Syncope and collapse Status: Acute (2) Hypotension: Code(s): I95.9 - Hypotension, unspecified Status: Acute (3) Transaminitis: Code(s): R74.01 - Elevation of levels of liver transaminase levels Status: Acute (4) Normocytic anemia: Code(s): D64.9 - Anemia, unspecified Status: Acute (5) Hyponatremia: Code(s): E87.1 - Hypo-osmolality and hyponatremia Status: Acute (6) Hypokalemia: Code(s): E87.6 - Hypokalemia Status: Acute (7) Hypertension: Code(s): I10 - Essential (primary) hypertension Status: Acute (8) Hyperlipidemia: Code(s): E78.5 - Hyperlipidemia, unspecified Status: Acute (9) Coronary artery disease: Code(s): I25.10 - Atherosclerotic heart disease of [place] coronary artery without angina pectoris Status: Acute Plan The patient presented to the emergency department for evaluation after a syncopal episode as detailed in HPI. According to EMS he was pale, diaphoretic, and hypotensive on their arrival. Differential diagnosis include orthostatic hypotension, vasovagal reaction, or even cardiac dysrhythmia. Pacemaker will be interrogated. Monitor orthostatic vital signs. Initiate fall precautions. He now has a low-grade fever and it is possible that he has a developing infection. Transaminases are elevated and right upper quadrant ultrasound has been ordered. Chest x-ray and urinalysis are unremarkable. Sodium remains a bit low at 132 however has improved on sodium tablets. Potassium will be replaced and monitored. Check iron studies, B12, and folate for evaluation of normocytic anemia. Hold antihypertensives for now. The rest of his home medications will be reviewed and resumed as appropriate. Findings and treatment plan were discussed with the patient. Questions were solicited and answered to satisfaction. The patient's medical management will be taken over by the hospitalist team in a.m. 12/14 Syncope No syncope overnight, denies palpitation EKG showed pacing rhythm site monitor does not report significant arrhythmia Orthostatic test does not support orthostatic hypertension Pending interrogation Pending echocardiogram Blood pressure stable now Suspecting hypotensive syncope Appreciate cardiology consultation Hyponatremia, hypotension Sodium level is trending up, 132 today will hold furosemide and hydrochlorothiazide CAD Denies chest pain Continue aspirin, Brilinta Anemia Hemoglobin stable Transaminitis Abdomen ultrasound unremarkable Will follow-up hepatitis panel and CMP Subjective Date/time seen: 12/15/23 08:20 Interval history: I saw and examined patient today, patient denies lightheadedness, palpitation, chest pain, abdomen pain, nausea vomiting diarrhea Exam Narrative: GENERAL: Pleasant, in no acute distress. Well-nourished. - EYES: EOMI. Anicteric. - HENT: Moist mucous membranes. - LUNGS: Clear to auscultation bilaterally, no wheezing, rhonchi, or rales. - CARDIOVASCULAR: Regular rate and rhythm. No murmur. No JVD. - ABDOMEN: Soft, non-tender and non-distended. No palpable masses. - EXTREMITIES: No edema. Peripheral pulses 2+. Non-tender. - NEUROLOGIC: No focal neurological deficits. CN II-XII grossly intact. - PSYCHIATRIC: Awake, Alert and oriented x 3. Appropriate mood and affect. - SKIN: No rashes or lesions. Warm. - LYMPH: No cervical lymphadenopathy.. Objective Data Vital Signs Vital Signs: Vital Signs - 24 hr 12/14/23 13:42 12/14/23 14:27 12/14/23 15:57 Temperature 97.6 F Pulse Rate 64 74 73 Respiratory Rate 16 18 Blood Pressure 113/47 L 125/56 L Pulse Oximetry 98 98 Oxygen Delivery Room Air 12/14/23 17:58 12/14/23 18:41 12/14/23 19:00 Temperature 99 F 99 F 100.6 F H Pulse Rate 103 H 105 H Respiratory Rate 19 18 Blood Pressure 131/56 L 148/70 H Pulse Oximetry 97
[2023-12-15] MEDS: SODIUM CHLORIDE 0.9% IV 1,000 ML 75 ML IV CONT (08:33)
[2023-12-15 09:43] LABS: Bilirubin Indirect 0.7 mg/dL (0-1.1)
[2023-12-15] MEDS: ASPIRIN 81 MG ENTERIC TABLET PO (10:12)
[2023-12-15] MEDS: carvediloL 3.125 MG TABLET PO ×2 (10:12→20:40)
[2023-12-15] MEDS: TICAGRELOR 90 MG TABLET PO ×2 (10:12→20:40)
[2023-12-15] MEDS: SODIUM CHLORIDE 1 GM TABLET PO (10:12)
--- NOTE | 2023-12-15 10:15 | PM.CNCAR ---
Assessment and Plan Assessment and plan (1) Syncope: Code(s): R55 - Syncope and collapse Status: Acute Assessment and Plan: Check orthostatic vital signs. Echocardiogram ordered and pending. Device interrogation ordered and pending. Episode had occurred 1 hour after taking his morning medications -- may be due to low blood pressure. I agree with holding his Lasix. He may need Lasix only as PRN. Will stop Hydralazine as well and see how his blood pressures do without Hydralazine. Continue Coreg, Losartan. (2) Coronary artery disease: Code(s): I25.10 - Atherosclerotic heart disease of [place] coronary artery without angina pectoris Status: Acute Assessment and Plan: Stable. Continue ASA, Brilinta, statin. (3) Hypertension: Code(s): I10 - Essential (primary) hypertension Status: Acute Assessment and Plan: Episode had occurred 1 hour after taking his morning medications -- may be due to low blood pressure. I agree with holding his Lasix. He may need Lasix only as PRN. Will stop Hydralazine as well and see how his blood pressures do without Hydralazine. Continue Coreg, Losartan. (4) Hyperlipidemia: Code(s): E78.5 - Hyperlipidemia, unspecified Status: Acute Assessment and Plan: Continue statin. (5) Chronic heart failure with reduced ejection fraction (HFrEF, <= 40%): Code(s): I50.22 - Chronic systolic (congestive) heart failure Status: Acute Assessment and Plan: Stable. Appears euvolemic. Holding Lasix as noted above. Continue Coreg and Losartan. (6) History of permanent cardiac pacemaker placement: Code(s): Z95.0 - Presence of cardiac pacemaker Status: Acute Assessment and Plan: Device interrogation pending. Recent pacemaker interrogation from last admission shows well functioning device with no arrhythmias. Plan Recommendations and plan were discussed with Hospitalist. History of Present Illness History of Present Illness Consult date/time: 12/15/23 10:15 Requesting physician: Carlos Nunez MD Consult reason: Other (Syncope) Reason For Visit: Syncope Narrative: We are consulted for syncope. This is a 78 year old male with CAD s/p PCI, chronic heart failure with reduced LVEF, permanent pacemaker placement in November 2023 for bradycardia / chronotropic incompetence / CHB, hypertension, hyperlipidemia. Patient was recently admitted here for sepsis, UTI, and dehydration. After discharge, patient was doing well. Son reports that yesterday, about an hour after taking his medications, patient was sitting in the kitchen and he became sluggish, weak, and seems like he passed out. Troponins are negative. CXR with cardiomegaly, but no other acute findings. Abdominal ultrasound done for elevated liver enzymes was unremarkable. EKG with ventricular paced rhythm. Recent pacemaker interrogation from last admission shows well functioning device with no arrhythmias. History obtained from the patient, along with son who was at bedside. Cardiac catheterization from February 2023 was personally reviewed and noted as below. [facility] Epic records were personally reviewed and noted below. Cardiac catheterization 02/09/2023: Successful IVUS-guided rotational atherectomy and PCI of the RCA using JD x 2, successful IVUS-guided PCI of the LAD using 1 JD. Medical management for [employer]. Transthoracic echocardiogram 12/01/2023 shows: Moderate concentric LVH. Moderate enlargement of LV cavity. Moderate-severe global LV systolic dysfunction with more prominent inferior and inferolateral hypokinesis. Paradoxical septal motion consistent with bundle branch block. Grade 1 diastolic dysfunction. LVEF 35%. Normal RVSF. Mild-moderate MR. Mild AR. Mild TR. Mild pulmonary hypertension. Review of Systems Review of Systems: All systems reviewed & are unremarkable except as noted in HPI and below (HPI) PMFSH Past Medical History Medical History (Up
[2023-12-16] VITALS (7 sets, daily range): BP systolic 143–163; BP diastolic 62–75; PULSE 65–78; RESP 20; TEMP 36.3; O2SAT 96–98
[2023-12-16] MEDS: TICAGRELOR 90 MG TABLET PO (08:19)
[2023-12-16] MEDS: ASPIRIN 81 MG ENTERIC TABLET PO (08:19)
[2023-12-16] MEDS: carvediloL 3.125 MG TABLET PO (08:19)
[2023-12-16] MEDS: SODIUM CHLORIDE 1 GM TABLET PO (08:19)
--- NOTE | 2023-12-16 08:27 | PM.DS ---
DS: Admitting Diagnosis Discharge Date 12/16/2023 Admitting Diagnosis Syncope DS: Discharge Diagnosis Discharge Diagnosis (1) Syncope: Code(s): R55 - Syncope and collapse Status: Acute (2) Hypotension: Code(s): I95.9 - Hypotension, unspecified Status: Acute (3) Transaminitis: Code(s): R74.01 - Elevation of levels of liver transaminase levels Status: Acute (4) Normocytic anemia: Code(s): D64.9 - Anemia, unspecified Status: Acute (5) Hyponatremia: Code(s): E87.1 - Hypo-osmolality and hyponatremia Status: Acute (6) Hypokalemia: Code(s): E87.6 - Hypokalemia Status: Acute (7) Hypertension: Code(s): I10 - Essential (primary) hypertension Status: Acute (8) Hyperlipidemia: Code(s): E78.5 - Hyperlipidemia, unspecified Status: Acute (9) Coronary artery disease: Code(s): I25.10 - Atherosclerotic heart disease of [place] coronary artery without angina pectoris Status: Acute DS: Summary Hospital Course Hospital Course: This is a pleasant 78-year-old male with heart failure with reduced ejection fraction, coronary artery disease with history of stent to the LAD and RCA, hypertension, hyperlipidemia, complete heart block status post permanent pacemaker insertion, hypertension, and hyperlipidemia who presented to the emergency department via EMS for evaluation after a syncopal episode. The patient and his family members provide the following history. He was recently admitted to the hospital through the emergency department on 12/10/2023 after presenting with complaints of generalized weakness for several months. He was admitted with dehydration and sepsis picture presumed to be related to urinary tract infection however urine culture demonstrated no growth and blood cultures have been negative today. Nonetheless he was discharged home on levofloxacin. He felt tired but otherwise okay on discharge. This afternoon he was sitting at the kitchen table eating lunch and riding out checks when he suddenly felt weak and lightheaded as though he was going to pass out. He then slumped over in the chair and was briefly unresponsive. On EMS arrival he was cool, pale, and diaphoretic with a blood pressure of 82/50. He was administered 200 mL bolus of normal saline and brought to the ED.. He denies focal weakness, paresthesias, fever, cold and flu symptoms, chest pain, pleuritic pain, palpitations, abdominal pain, nausea, vomiting, diarrhea, dysuria, lower extremity edema, and calf pain. In the ED: Blood pressure was 113/47 on arrival. Temperature has been as high as 100.6? F. the remainder of his vital signs have been stable. Labs are significant for WBC count of 3.9, hemoglobin 10.1, sodium 132, potassium 3.3, lactic acid 1.1, AST 121, ALT 132, alkaline phosphatase 166, total bili I 0.2, troponin 0.020, procalcitonin 0.4. Urinalysis was unremarkable. He tested negative for influenza, RSV, and COVID. Chest x-ray showed cardiomegaly. He is being admitted in this setting for further evaluation. Differential diagnosis include orthostatic hypotension, vasovagal reaction, or even cardiac dysrhythmia. Pacemaker degraded and no arrhythmia were noted.. Monitor orthostatic vital signs which remains stable. Initiate fall precautions. He now has a low-grade fever and it is possible that he has a developing infection. Transaminases are elevated and right upper quadrant ultrasound order which was unremarkable Chest x-ray and urinalysis are unremarkable. Sodium remains a bit low at 132 however has improved on sodium tablets. Potassium replaced and monitored. Anemia was chronic and stable no signs of bleeding. Lasix and hydralazine was held. Will plan to continue only on losartan at discharge. He has been ambulated without any issues telemetry without any significant arrhythmia. Echo was performed was without any acute changes: EF 35-40% grade 1 diastolic dysfunction at le
[2023-12-16 08:28] LABS: Alanine Aminotransferase 144 U/L (6-50); Albumin Level 3.2 g/dL (3.5-5.1); Alkaline Phosphatase 171 U/L (38-126); Anion Gap 8 mmol/L (4-12); Aspartate Amino Transferase 87 U/L (17-59); Bilirubin,Total 0.9 mg/dL (0.2-1.3); Blood Urea Nitrogen 11 mg/dL (9-20); Calcium 8.2 mg/dL (8.4-10.2); Carbon Dioxide 26 mmol/L (22-30); Chloride 101 mmol/L (98-107); Estimated CRCL calculation 77 ml/min; Estimated Glomerular Filt Rate > 60; Glucose 92 mg/dL (65-110); Potassium 3.6 mmol/L (3.4-5.0); Sodium 135 mmol/L (137-145)
[2023-12-16 08:33] LABS: Basophils Percent Auto 0.6 % (0.2-1.2); Eosinophils Absolute Auto 0.1 K/mm3 (0-0.3); Eosinophils Percent Auto 1.9 % (0-4.4); Hematocrit 26.7 % (42.0-52.0); Hemoglobin 9.2 g/dL (14.0-18.0); Immature Granulocyte Absolute 0.03 K/mm3 (0.00-0.031); Immature Granulocyte Percent A 0.6 % (0-0.5); Lymphocytes Absolute Auto 0.74 K/mm3 (0.9-3.2); Lymphocytes Percent Auto 14.4 % (18.3-44.2); Mean Corpuscular HGB Conc 34.5 g/dl (32-36); Mean Corpuscular Hemoglobin 31.9 pg (26-34); Mean Corpuscular Volume 92.7 fl (80-100); Mean Platelet Volume 10.6 fl (7.4-10.4); Monocytes Absolute Auto 0.4 K/mm3 (0.1-0.6); Monocytes Percent Auto 7.8 % (2.6-8.5); Neutrophils Absolute Auto 3.8 K/mm3 (1.3-6.7); Neutrophils Percent Auto 74.7 % (45.5-73.1); Platelet Count Result 207 k/mm3 (150-375); Red Blood Count 2.88 M/mm3 (4.6-6.20); Red Cell Distribution Width 13.1 % (11.5-14.5); White Blood Count 5.1 K/mm3 (4.5-10.0)
--- NOTE | 2023-12-16 12:21 | PM.PNCARD ---
Progress Note: A&P Assessment and Plan (1) Syncope: Code(s): R55 - Syncope and collapse Status: Acute Assessment and Plan: Orthostatics negative. Device interrogation shows no arrhythmias. Echocardiogram without significant changes compared to prior. Episode had occurred 1 hour after taking his morning medications -- may be due to low blood pressure. I agree with holding his Lasix. He may need Lasix only as PRN. Will stop Hydralazine as well and see how his blood pressures do without Hydralazine. Continue Coreg, Losartan. (2) Coronary artery disease: Code(s): I25.10 - Atherosclerotic heart disease of [place] coronary artery without angina pectoris Status: Acute Assessment and Plan: Stable. Continue ASA, Brilinta, statin. (3) Hypertension: Code(s): I10 - Essential (primary) hypertension Status: Acute Assessment and Plan: Episode had occurred 1 hour after taking his morning medications -- may be due to low blood pressure. I agree with discontinuing his Lasix. He may need Lasix only as PRN. Will stop Hydralazine as well and see how his blood pressures do without Hydralazine. Continue Coreg, Losartan (4) Hyperlipidemia: Code(s): E78.5 - Hyperlipidemia, unspecified Status: Acute Assessment and Plan: Continue statin. (5) Chronic heart failure with reduced ejection fraction (HFrEF, <= 40%): Code(s): I50.22 - Chronic systolic (congestive) heart failure Status: Acute Assessment and Plan: Stable. Appears euvolemic. Holding Lasix as noted above. Continue Coreg and Losartan. (6) History of permanent cardiac pacemaker placement: Code(s): Z95.0 - Presence of cardiac pacemaker Status: Acute Assessment and Plan: Device interrogation shows no arrhythmias. Subjective Date/time seen: 12/16/23 12:21 Interval history: Reason for visit: Syncope HPI: We are consulted for syncope. This is a 78 year old male with CAD s/p PCI, chronic heart failure with reduced LVEF, permanent pacemaker placement in November 2023 for bradycardia / chronotropic incompetence / CHB, hypertension, hyperlipidemia. Patient was recently admitted here for sepsis, UTI, and dehydration. After discharge, patient was doing well. Son reports that yesterday, about an hour after taking his medications, patient was sitting in the kitchen and he became sluggish, weak, and seems like he passed out. Troponins are negative. CXR with cardiomegaly, but no other acute findings. Abdominal ultrasound done for elevated liver enzymes was unremarkable. EKG with ventricular paced rhythm. Recent pacemaker interrogation from last admission shows well functioning device with no arrhythmias. History obtained from the patient, along with son who was at bedside. Cardiac catheterization from February 2023 was personally reviewed and noted as below. [facility] Epic records were personally reviewed and noted below. Cardiac catheterization 02/09/2023: Successful IVUS-guided rotational atherectomy and PCI of the RCA using JD x 2, successful IVUS-guided PCI of the LAD using 1 JD. Medical management for [employer]. Transthoracic echocardiogram 12/01/2023 shows: Moderate concentric LVH. Moderate enlargement of LV cavity. Moderate-severe global LV systolic dysfunction with more prominent inferior and inferolateral hypokinesis. Paradoxical septal motion consistent with bundle branch block. Grade 1 diastolic dysfunction. LVEF 35%. Normal RVSF. Mild-moderate MR. Mild AR. Mild TR. Mild pulmonary hypertension. Date of service 12/15: Feeling well today. Tele stable. Review of Systems Review of Systems: All systems reviewed & are unremarkable except as noted in HPI and below (HPI) Exam Const: General: comfortable and no acute distress HENMT: Mouth: Yes moist mucous membranes Eyes: General: appearance normal, both eyes and all related structures Sclera: sclerae normal Cardio: Rate: regular rate Rh
== END 2023-12-16 11:45 | disposition home or self-care (01) ==
LOC: ANHED 17:58 → ANH2MED 12-15 03:27
PROVIDERS: Hospitalist; Physician Assistant; Student in an Organized Health Care Education/Training Program; Admitting Provider General Practice; Emergency Provider Emergency Medicine; PCP Family Medicine; Visit Provider Internal Medicine
DX: R55 Syncope and collapse (principal); R74.01 Elevation of levels of liver transaminase levels; D64.9 Anemia, unspecified; E87.1 Hypo-osmolality and hyponatremia; E87.6 Hypokalemia; I11.0 Hypertensive heart disease with heart failure; I50.22 Chronic systolic (congestive) heart failure; I25.10 Atherosclerotic heart disease of native coronary artery without angina pectoris; I44.2 Atrioventricular block, complete; I08.3 Combined rheumatic disorders of mitral, aortic and tricuspid valves; E78.5 Hyperlipidemia, unspecified; Z95.0 Presence of cardiac pacemaker; Z87.891 Personal history of nicotine dependence; Z79.01 Long term (current) use of anticoagulants; Z79.82 Long term (current) use of aspirin; Z95.5 Presence of coronary angioplasty implant and graft; Z20.822 Contact with and (suspected) exposure to COVID-19
CPT/HCPCS: 36415; 71046; 76705; 80053; 80074; 81003; 82248; 82550; 82607; 82728; 82746; 83540; 83550; 83605; 83690; 83735; 84145; 84443; 84484; 85025; 85027; 85046; 87637; 93005; 93306; 99285; A9270; G0378; J7030

== ENCOUNTER 2023-12-27 15:50 | Outpatient (CLI) | payer OTHER, SELFPAY ==
[2023-12-27 16:55] LABS: Basophils Absolute Auto 0.1 K/mm3 (0.0-0.1); Basophils Percent Auto 1.1 % (0.2-1.2); Eosinophils Absolute Auto 0.1 K/mm3 (0-0.3); Eosinophils Percent Auto 0.9 % (0-4.4); Hematocrit 35.1 % (42.0-52.0); Hemoglobin 11.8 g/dL (14.0-18.0); Immature Granulocyte Absolute 0.01 K/mm3 (0.00-0.031); Immature Granulocyte Percent A 0.2 % (0-0.5); Lymphocytes Absolute Auto 0.95 K/mm3 (0.9-3.2); Lymphocytes Percent Auto 16.9 % (18.3-44.2); Mean Corpuscular HGB Conc 33.6 g/dl (32-36); Mean Corpuscular Hemoglobin 32.5 pg (26-34); Mean Corpuscular Volume 96.7 fl (80-100); Mean Platelet Volume 10.3 fl (7.4-10.4); Monocytes Absolute Auto 0.4 K/mm3 (0.1-0.6); Monocytes Percent Auto 7.8 % (2.6-8.5); Neutrophils Absolute Auto 4.1 K/mm3 (1.3-6.7); Neutrophils Percent Auto 73.1 % (45.5-73.1); Platelet Count Result 233 k/mm3 (150-375); Red Blood Count 3.63 M/mm3 (4.6-6.20); Red Cell Distribution Width 15.2 % (11.5-14.5); White Blood Count 5.6 K/mm3 (4.5-10.0)
[2023-12-27 17:04] LABS: Alanine Aminotransferase 40 U/L (6-50); Albumin Level 4.3 g/dL (3.5-5.1); Alkaline Phosphatase 75 U/L (38-126); Anion Gap 11 mmol/L (4-12); Aspartate Amino Transferase 71 U/L (17-59); Bilirubin,Total 0.7 mg/dL (0.2-1.3); Blood Urea Nitrogen 23 mg/dL (9-20); Calcium 9.2 mg/dL (8.4-10.2); Carbon Dioxide 25 mmol/L (22-30); Chloride 102 mmol/L (98-107); Estimated Glomerular Filt Rate > 60; Glucose 92 mg/dL (65-110); Potassium 4.2 mmol/L (3.4-5.0); Sodium 138 mmol/L (137-145)
== END 2023-12-27 15:51 | disposition home or self-care (01) ==
LOC: ANHGOSHLAB 15:51
PROVIDERS: PCP Family Medicine; Visit Provider Family Medicine
DX: R53.83 Other fatigue (principal); Z13.228 Encounter for screening for other metabolic disorders
CPT/HCPCS: 36415; 80053; 85025